=== PATIENT | female | born 1995 | race Caucasian/White ===

== ENCOUNTER 2016-11-20 18:52 | Inpatient (IN) | payer BC, MEDICAID ==
--- NOTE | 2016-11-20 20:05 | EDPHY ---
H & P Time Seen by Provider: 11/20/16 19:48 HPI/ROS: Chief complaint. Vomiting, possible aspiration HPI. 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 She was at school today and about 11:00 a.m. called mom to come because patient vomited. She has vomited 2 more times. Vomiting fluids and unable to take oral fluids. This evening mom noticed that her lung sounds somewhat rapidly. She does have a history of aspiration pneumonia. Mom also notes decreased urination. Patient has had pancreatitis in the past though recently had the lipase checked it was normal. ROS Constitutional. no fever/chills, no weakness Eyes. no problems with vision ENT. no sore throat, no nasal drainage Cardiovascular. no chest pain Respiratory. Rattling in chest Abdominal. Vomiting . no problems urinating MS. no calf pain/swelling, no neck/back pain, no joint pain Skin. no rash Lymph. no swollen glands Neuro. no headache, no dizziness, difficulty walking and nonverbal secondary to trisomy 18 Past Medical/Surgical History: Trisomy 18, scoliosis, G-tube fed, GI bleed, pancreatitis, pneumonia, UTIs, intussusception repair, appendectomy Social History: Lives at home with parents Smoking Status: Never smoked Physical Exam: General Appearance: Alert well-developed female nonverbal mild distress vital signs are stable Eyes: Pupils equal and round no pallor or injection. ENT, mucous membranes are dry Respiratory: Right-sided rhonchi Cardiovascular: Regular rate and rhythm. Gastrointestinal: Abdomen is soft and nontender, no masses, bowel sounds normal. Neurological: Awake and alert, sensory and motor exams grossly normal. Skin: Warm and dry, no rashes. Musculoskeletal: Neck is supple nontender. Extremities symmetrical, full range of motion. Psychiatric: Patient at baseline Constitutional: Initial Vital Signs Temperature (C) 36.2 C 11/20/16 19:10 Heart Rate 97 11/20/16 19:10 Respiratory Rate 20 11/20/16 19:10 Blood Pressure 107/67 11/20/16 19:10 O2 Sat (%) 92 11/20/16 19:10 O2 Delivery Mode Room Air Allergies/Adverse Reactions: No Known Allergies Allergy (Verified 05/15/15 09:41) Home Medications: Medication Instructions Recorded NK [No Known Home Meds] 05/15/15 Medical Decision Making - Diagnostics Imaging Results: Imaging Impressions Chest X-Ray 11/20/16 20:07 Impression: 1. Limited study, with no definite acute findings. 2. Slight increase in severe dextroscoliosis. Chest x-ray reviewed by me and discussed with Dr. Reaves is of difficult technical ability due to patient's severe scoliosis. There is no obvious pneumonia however. Procedures: IV normal saline. Zofran IV ED Course/Re-evaluation: Re-evaluation 9:15 p.m.. Patient's parents and I discussed imaging and lab results. No urine yet. Mother feels the patient is breathing slightly faster than normal. She will be given albuterol updraft. Re-evaluation 10:15 p.m. still has rhonchi on the right after breathing treatment. She is on supplemental O2 but her saturation dropped when taking her off O2. Mom tried to insert feeding tube and there was a small amount of blood which is unusual. Patient is nonverbal which makes it difficult to assess though the patient does appear to be more alert. Differential Diagnosis: I am concerned about aspiration pneumonia. This may have begun as a gastroenteritis with vomiting. She has a history of aspiration pneumonia and clinically she has aspiration with hypoxia and rhonchi on the right even though the chest x-ray shows no obvious pneumonia now - Data Points Laboratory Results: Laboratory Results 11/20/16 20:11 11/20/16 20:11 11/20/16 11/20/16 20:11 20:11 WBC 13.26 10^3/uL H 10^3/uL (3.80-9.50) RBC 4.22 10^6/uL 10^6/uL (4.18-5.33) Hgb 13.4 g/dL g/dL (12.6-16.3) Hct 38.8 % % (38.0-47.0) MCV 91.9 fL fL (81.5-99.8) MCH 31.8 pg pg (27.9-34.1) MCHC 34.5 g/dL g/dL (32.4-36.7) RDW 12.0 % % (11.5-15.2) Plt Count 194 10^3/uL 10^3/uL (150-400) MPV 10.1 fL fL (8.7-11.7) Neut % (Auto) 85.5 % H % (39.3-74.2) Lymph % (Auto) 10.0 % L % (15.0-45.0) Kay % (Auto) 4.1 % L % (4.5-13.0) Eos % (Auto) 0.0 % L % (0.6-7.6) Baso % (Auto) 0.2 % L % (0.3-1.7) Nucleat RBC Rel Count 0.0 % % (0.0-0.2) Absolute Neuts (auto) 11.32 10^3/uL H 10^3/uL (1.70-6.50) Absolute Lymphs (auto) 1.33 10^3/uL 10^3/uL (1.00-3.00) Absolute Monos (auto) 0.55 10^3/uL 10^3/uL (0.30-0.80) Absolute Eos (auto) 0.00 10^3/uL L 10^3/uL (0.03-0.40) Absolute Basos (auto) 0.03 10^3/uL 10^3/uL (0.02-0.10) Absolute Nucleated RBC 0.00 10^3/uL 10^3/uL (0-0.01) Immature Gran % 0.2 % % (0.0-1.1) Immature Gran # 0.03 10^3/uL 10^3/uL (0.00-0.10) Sodium 137 mEq/L mEq/L (134-144) Potassium 3.7 mEq/L mEq/L (3.5-5.2) Chloride 101 mEq/L mEq/L (97-110) Carbon Dioxide 24 mEq/l mEq/l (22-31) Anion Gap 12 mEq/L mEq/L (8-16) BUN 12 mg/dL mg/dL (7-23) Creatinine 0.5 mg/dL L mg/dL (0.6-1.0) Estimated GFR > 60 Glucose 86 mg/dL mg/dL (70-100) Calcium 10.2 mg/dL mg/dL (8.5-10.4) Lipase 32 IU/L IU/L (23-300) Medications Given: Discontinued Medications Albuterol (Proventil Neb) 3 ml IH EDNOW ONE Stop: 11/20/16 21:16 Last Admin: 11/20/16 21:57 Dose: 3 ml Sodium Chloride (Ns) 1,000 mls @ 0 mls/hr IV EDNOW ONE; Wide Open PRN Reason: Protocol Stop: 11/20/16 20:07 Last Admin: 11/20/16 20:18 Dose: 1,000 mls Sodium Chloride (Ns) 1,000 mls @ 0 mls/hr IV ONCE ONE; Wide Open PRN Reason: Protocol Stop: 11/20/16 20:08 Last Admin: 11/20/16 22:04 Dose: 1,000 mls Ondansetron HCl (Zofran) 4 mg IVP EDNOW ONE Stop: 11/20/16 20:07 Last Admin: 11/20/16 20:18 Dose: 4 mg Departure - Departure Disposition: [facility] Inpatient Acute Clinical Impression: Vomiting and dehydration Aspiration pneumonia Qualifiers: Aspiration pneumonia type: due to gastric secretions Laterality: right Lung location: unspecified part of lung Qualified Code(s): J69.0 - Pneumonitis due to inhalation of food and vomit Condition: Fair Referrals: UNKNOWN,[facility] [Other] - As per Instructions
[2016-11-20] MEDS ORDERED: ONDANSETRON 4 MG/2 ML VIAL IVP ONE (20:06)
[2016-11-20] MEDS ORDERED: NS 1,000 ML IV ONE ×2 (20:06→20:07)
[2016-11-20 20:25] LABS: % IMMATURE GRANULYOCYTES 0.2 % (0.0-1.1); ABSOLUTE IMMATURE GRANULOCYTES 0.03 10^3/uL (0.00-0.10); ADD DIFF? NO; ADD MORPH? NO; ADD SCAN? NO; ATYPICAL LYMPHOCYTE FLAG 0 (0-99); FRAGMENT RBC FLAG 0 (0-99); HEMATOCRIT 38.8 % (38.0-47.0); HEMOGLOBIN 13.4 g/dL (12.6-16.3); LEFT SHIFT FLG 10 (0-99); LIPEMIA HEMOLYSIS FLAG 90 (0-99); MEAN CELL HEMOGLOBIN 31.8 pg (27.9-34.1); MEAN CELL HEMOGLOBIN CONCENTR. 34.5 g/dL (32.4-36.7); MEAN CELL VOLUME 91.9 fL (81.5-99.8); MEAN PLATELET VOLUME 10.1 fL (8.7-11.7); PLATELET CLUMPS FLAG 30 (0-99); PLATELET COUNT 194 10^3/uL (150-400); RED BLOOD CELL COUNT 4.22 10^6/uL (4.18-5.33)
[2016-11-20 20:29] LABS: ANION GAP 12 mEq/L (8-16); CALCIUM 10.2 mg/dL (8.5-10.4); CARBON DIOXIDE 24 mEq/l (22-31); CHLORIDE 101 mEq/L (97-110); CREATININE 0.5 mg/dL (0.6-1.0); GLOMERULAR FILTRATION RATE > 60; GLUCOSE 86 mg/dL (70-100); POTASSIUM 3.7 mEq/L (3.5-5.2); SODIUM 137 mEq/L (134-144)
[2016-11-20] MEDS ORDERED: ALBUTEROL 3 ML DEYVIAL IH ONE (21:15)
[2016-11-20] MEDS ORDERED: AMPICILLIN/SULBACTAM 1.5 GM in NS 50 ML IV ONE (22:25)
[2016-11-20] MEDS ORDERED: ONDANSETRON 4 MG/2 ML VIAL IVP PRN (22:37)
[2016-11-20] MEDS ORDERED: ONDANSETRON DISINTEGRATING 4 MG TAB PO PRN (22:37)
[2016-11-20] MEDS ORDERED: NS 500 ML IV ONE (23:52)
--- NOTE | 2016-11-21 01:53 | PDGENHP ---
History and Physical - Chief Complaint Aspiration - History of Present Illness 21 yo F w/ hx of trisomy 18, non-verbal/non-communicative at baseline presents after episode of vomiting and likely aspiration. Parents report that patient first vomited while at her daycare around mid-day. She then vomited again around 5 PM at which time mom noticed signs of aspiration. Patient is unable to communicate and therefore cannot provide symptoms. While in the ED the patient exhibited new hypoxia and scant bloody output from G-tube. Upon arrival to the floor patient was stable but tachycardic with significant O2 requirement. History Information - Allergies/Home Medication List Allergies/Adverse Reactions: No Known Allergies Allergy (Verified 05/15/15 09:41) Home Medications: NK [No Known Home Meds] 05/15/15 [Last Taken Unknown] I have personally reviewed and updated: family history, medical history - Past Medical History Additional medical history: Trisomy 18. Pancreatitis x2. Intussusception - Family History Positive for: cancer - Social History Smoking Status: Never smoked Review of Systems Review of Systems: Unable to obtain, patient non-verbal Physical Exam Physical Exam: Temp Pulse Resp BP Pulse Ox 36.5 C 122 H 26 H 100/69 90 L 11/21/16 00:05 11/21/16 00:05 11/20/16 23:07 11/21/16 00:05 11/21/16 00:05 O2 (L/minute) 15 Constitutional: uncomfortable, other (Non-verbal, minimally responsive) Ears, Nose, Mouth, Throat: moist mucous membranes, no oral mucosal ulcers Cardiovascular: no murmur, rub, or gallop, tachycardia Respiratory: respiratory distress, rhonchi (Diffuse) Gastrointestinal: tenderness, other (G-tube in place) Skin: warm, normal color Neurologic: other (Unable to assess) Psychiatric: other (Not interactive) Lab Data & Imaging Review 11/20/16 20:11 11/20/16 20:11 WBC 13.26 10^3/uL (3.80-9.50) H 11/20/16 20:11 RBC 4.22 10^6/uL (4.18-5.33) 11/20/16 20:11 Hgb 13.4 g/dL (12.6-16.3) 11/20/16 20: Hct 38.8 % (38.0-47.0) 11/20/16 20:11 MCV 91.9 fL (81.5-99.8) 11/20/16 20:11 MCH 31.8 pg (27.9-34.1) 11/20/16 20:11 MCHC 34.5 g/dL (32.4-36.7) 11/20/16 20:11 RDW 12.0 % (11.5-15.2) 11/20/16 20:11 Plt Count 194 10^3/uL (150-400) 11/20/16 20:11 MPV 10.1 fL (8.7-11.7) 11/20/16 20:11 Neut % (Auto) 85.5 % (39.3-74.2) H 11/20/16 20:11 Lymph % (Auto) 10.0 % (15.0-45.0) L 11/20/16 20:11 [place] % (Auto) 4.1 % (4.5-13.0) L 11/20/16 20:11 Eos % (Auto) 0.0 % (0.6-7.6) L 11/20/16 20:11 Baso % (Auto) 0.2 % (0.3-1.7) L 11/20/16 20:11 Nucleat RBC Rel Count 0.0 % (0.0-0.2) 11/20/16 20:11 Absolute Neuts (auto) 11.32 10^3/uL (1.70-6.50) H 11/20/16 20:11 Absolute Lymphs (auto) 1.33 10^3/uL (1.00-3.00) 11/20/16 20:11 Absolute Monos (auto) 0.55 10^3/uL (0.30-0.80) 11/20/16 20:11 Absolute Eos (auto) 0.00 10^3/uL (0.03-0.40) L 11/20/16 20:11 Absolute Basos (auto) 0.03 10^3/uL (0.02-0.10) 11/20/16 20:11 Absolute Nucleated RBC 0.00 10^3/uL (0-0.01) 11/20/16 20: Immature Gran % 0.2 % (0.0-1.1) 11/20/16 20:11 Immature Gran # 0.03 10^3/uL (0.00-0.10) 11/20/16 20:11 VBG Lactic Acid 2.4 mmol/L (0.7-2.1) H 11/20/16 00:30 Sodium 137 mEq/L (134-144) 11/20/16 20:11 Potassium 3.7 mEq/L (3.5-5.2) 11/20/16 20:11 Chloride 101 mEq/L (97-110) 11/20/16 20:11 Carbon Dioxide 24 mEq/l (22-31) 11/20/16 20:11 Anion Gap 12 mEq/L (8-16) 11/20/16 20:11 BUN 12 mg/dL (7-23) 11/20/16 20:11 Creatinine 0.5 mg/dL (0.6-1.0) L 11/20/16 20:11 Estimated GFR > 60 11/20/16 20:11 Glucose 86 mg/dL (70-100) 11/20/16 20:11 Calcium 10.2 mg/dL (8.5-10.4) 11/20/16 20:11 Lipase 32 IU/L (23-300) 11/20/16 20:11 Imaging Review: CXR without clear acute findings but severe dextroscoliosis. Assessment & Plan Assessment: 21 yo F w/ trisomy 18 and severe developmental delay presents after aspiration event with respiratory distress. Plan: 1. AHRF - Requiring 12-15L via face mask currently; precipitated by aspiration event on day of admission in the setting of poor respiratory reserve 2/2 severe restrictive physiology from scoliosis. - Discussed GOC at length with parents; ok for NIPPV and intubation if necessary. They do not with to proceed to a tracheostomy down the line if that were to be recommended - Chest physiotherapy ordered - Low threshold to involve the Pulmonary service - Infection coverage as below 2. Aspiration pneumonitis/pneumonia - WBC 13, afebrile, lactate 2.4. Unclear if truly infected but will cover with antibiotics noting poor reserve. - Blood cultures ordered - Unasyn IV for aspiration 3. Vomiting - Unclear trigger, difficult to assess due to patient's inability to communicate. Scant blood noted from G-tube while in ED. Patient does have hx of intussusception as well as pancreatitis. Lipase WNL on admission. - Check abdominal XR, LFTs - Low threshold to involve surgical team 4. Hx of Trisomy 18 - Severe developmental delay, non-communicative and minimally interactive at baseline. Diet - Per G-tube Code - Full, ok for intubation Ppx - Low risk Dispo - Admit to inpatient status noting severity of respiratory failure.
[2016-11-21] MEDS: AMPICILLIN/SULBACTAM 1.5 GM in NS 50 ML IV SCH ×4 (05:11→23:58)
[2016-11-21 05:51] LABS: % IMMATURE GRANULYOCYTES 0.2 % (0.0-1.1); ABSOLUTE IMMATURE GRANULOCYTES 0.02 10^3/uL (0.00-0.10); ADD DIFF? NO; ADD MORPH? NO; ADD SCAN? YES; ATYPICAL LYMPHOCYTE FLAG 0 (0-99); FRAGMENT RBC FLAG 0 (0-99); HEMATOCRIT 34.3 % (38.0-47.0); HEMOGLOBIN 11.3 g/dL (12.6-16.3); LIPEMIA HEMOLYSIS FLAG 80 (0-99); MEAN CELL HEMOGLOBIN 31.1 pg (27.9-34.1); MEAN CELL HEMOGLOBIN CONCENTR. 32.9 g/dL (32.4-36.7); MEAN CELL VOLUME 94.5 fL (81.5-99.8); MEAN PLATELET VOLUME 10.6 fL (8.7-11.7); PLATELET CLUMPS FLAG 0 (0-99); PLATELET COUNT 154 10^3/uL (150-400); RED BLOOD CELL COUNT 3.63 10^6/uL (4.18-5.33); RED CELL DISTRIBUTION WIDTH 12.3 % (11.5-15.2)
[2016-11-21 06:04] LABS: LEFT SHIFT FLG 130 (0-99)
[2016-11-21 06:07] LABS: ALANINE AMINOTRANSFERASE 28 IU/L (9-52); ALBUMIN 3.2 g/dL (3.5-5.0); ALKALINE PHOSPHATASE 62 IU/L (38-126); ANION GAP 9 mEq/L (8-16); ASPARTATE AMINOTRANSFERASE 21 IU/L (14-46); BILIRUBIN,TOTAL 0.4 mg/dL (0.1-1.4); BILIRUBIN-CONJUGATED 0.2 mg/dL (0.0-0.5); BILIRUBIN-UNCONJUGATED 0.2 mg/dL (0.0-1.1); CALCIUM 8.8 mg/dL (8.5-10.4); CARBON DIOXIDE 22 mEq/l (22-31); CHLORIDE 110 mEq/L (97-110); CREATININE 0.5 mg/dL (0.6-1.0); GLOMERULAR FILTRATION RATE > 60; GLUCOSE 87 mg/dL (70-100); POTASSIUM 3.6 mEq/L (3.5-5.2); SODIUM 141 mEq/L (134-144); TOTAL PROTEIN 5.5 g/dL (6.3-8.2)
[2016-11-21 06:40] LABS: SCAN POSITIVE
[2016-11-21 06:43] LABS: PLATELET ESTIMATE ADEQUATE (ADEQ)
[2016-11-21] MEDS ORDERED: ALBUTEROL 3 ML DEYVIAL ONE (08:27)
[2016-11-21] MEDS ORDERED: NS 500 ML IV ONE (08:50)
[2016-11-21] MEDS ORDERED: NS W/ 20 KCl/L 1,000 ML IV SCH (09:00)
--- NOTE | 2016-11-21 09:58 | HOSPPROG ---
Hospitalist Progress Note Assessment/Plan: 60 minutes of critical care time spent with this patient, at bedside, mother present, addressing the following: - stat team called for resp distress w/ SpO 70-80s% on 15L face mask, patient visibly tachypneic, in distress/uncomfortable, and w/ coarse upper airway sounds - lungs w/ rhonchi bilat on inspiration, heart rhythm regular but tachy, patient unable to verbalize - given ICU full, decision made to move patient to ED where she can be stabilized with BiPAP therapy first (per mother request), then intubation available if necessary (spoke w/ Dr. Herzog from anaesthesia, they are available to intubate potentially difficult airway, call [phone] and request anaesthesia) - RT will start BiPAP and check ABG/lactic at 10 a.m. - other labs at 10 a.m. (CBC/CMP) - given that there is blood from PEG earlier, recommend opening it up to suctioning, gauging output, rechecking Hgb at 10 a.m. - RT to continue upper airway suctioning - cont Unasyn for asp PNA coverage - bolus 500cc now, then run cont IVF at 100cc/hr and bolus if hypotensive - d/w Dr. Dennis Downs for ICU, appreciate consultation, aspiration PNA most likely cause of above, and it is a result of her underlying Trisomy 18 process, although may have been exacerbated by UGIB given reported hx - at present family would like full resuscitation, but ongoing goals of care discussions will take place Objective: Vital Signs Temp Pulse Resp BP Pulse Ox 36.6 C 131 H 16 129/75 H 100 11/21/16 08:00 11/21/16 09:24 11/21/16 09:24 11/21/16 09:00 11/21/16 09:24 Laboratory Results 11/21/16 05:06 11/21/16 05:06 11/20/16 11/21/16 11/22/16 05:59 05:59 05:59 Intake Total 1500 Balance 1500 ICD10 Worksheet Patient Problems: Problems Problem Status Onset Aspiration pneumonia Acute
[2016-11-21] MEDS: TOBRAMYCIN 0.3% 5 ML OPHT.BTL EACHEYE SCH (12:21)
[2016-11-21] MEDS: ACETAMINOPHEN 325 MG TAB PO PRN ×2 (12:40→22:00)
[2016-11-21] MEDS ORDERED: ALTEPLASE 2 MG VIAL IVP PRN ×2 (13:46)
--- NOTE | 2016-11-21 14:15 | ASMTCMCOM ---
CM Note CM Note Notes: Patient admitted for likely aspiration PNA. She has a hx of Trisomy 18 and is non-verbal/non-communicative. I spoke with her mother Valeriano who provided backgrount on patient's living situation/activies. Patient lives at home with both parents and has a full-time live-in caregiver. She attends a program at [facility] 4x week. She sees an white mixing operator, hippotherapist, and other osteopathic practitioners. She is on the Medicaid EBD voucher program. Her mother requested that I call her [facility] auto striper Flora Sprague (?). I did so and left a message for Flora. I don't anticipate that patient will have any d/c needs because she is so well-supported at home, but if she does, CM will assist. Date Signed: 11/21/2016 02:14 PM Electronically Signed By:Ariana León RN
[2016-11-21] MEDS ORDERED: BENZOCAINE UNIT DOSE SPRAY HURRICAINE MM ONE (14:17)
[2016-11-21] MEDS ORDERED: LIDOCAINE 1% 300 MG/30 ML SDV MISC ONE (14:17)
[2016-11-21] MEDS ORDERED: LIDOCAINE 2% JELLY 5 ML TUBE TP ONE (14:17)
[2016-11-21] MEDS ORDERED: fentaNYL 100 MCG/2 ML INJ ONE (14:30)
[2016-11-21] MEDS ORDERED: MIDAZOLAM 2 MG/2 ML VIAL ONE (14:31)
--- NOTE | 2016-11-21 15:29 | PDMN ---
Medical Necessity Medical necessity: est los >2 mn for AHRF requiring 12-15 lpm O2, precipitated by vomiting/aspiration event, possible aspiration pneumonitis/pna, for IV abx, bipap/airway suctioning; hx trisomy 18, severe DD; per H&P & order 11/21/16
[2016-11-21] MEDS ORDERED: MIDAZOLAM 2 MG/2 ML VIAL IVP ONE (15:30)
[2016-11-21] MEDS ORDERED: fentaNYL 100 MCG/2 ML INJ IVP ONE (15:30)
--- NOTE | 2016-11-21 16:07 | GCON ---
[f rep st] CONSULTATION PULMONARY/CRITICAL CARE CONSULTATION. DATE OF CONSULTATION: 11/21/2016 REFERRING PHYSICIAN: Sonny Garcia REASON FOR REFERRAL: Evaluation and management of hypoxemia with aspiration pneumonia. HISTORY: The patient is a 21-year-old woman with a history of trisomy 18 who is nonverbal at [facility]. She was apparently doing fairly well until yesterday when she had an episode of vomiting. She church d a few more episodes as well as possible aspiration yesterday and was brought into the hospital. Sanya george developed hypoxemia and was admitted with increasing oxygen needs as well as tachycardia. She was transferred to the intensive care unit due to worsening hypoxemia. There has been no cough. She has been placed on BiPAP and her oxygen saturations are stable in the high 90s. PAST MEDICAL HISTORY: Trisomy 18. She has had pancreatitis x2. She has a feeding tube and does not take anything orally. MEDICATIONS AT ADMISSION: Include tobramycin eye drops. Here in the hospital she is on Unasyn, ondansetron and albuterol. FAMILY HISTORY: Positive for cancer. SOCIAL HISTORY: No smoking or alcohol. REVIEW OF SYSTEMS: Unobtainable. PHYSICAL EXAMINATION: GENERAL: The patient has chronic contractures and is minimally responsive on BiPAP. She does moan with movement. VITAL SIGNS: Blood pressure is 102/44 with a heart rate of 104 . She is afebrile. Her temperature is 38.8. Her oxygen saturations are 98% on 90% oxygen. HEENT: Normocephalic and atraumatic. No icterus. NECK: No JVD. Trachea is midline. CHEST: She has dec reased breath sounds bilaterally with occasional rhonchi in the right. CARDIAC: Regular tachycardia without murmur. ABDOMEN: Soft. There is no apparent tenderness. She has a feeding tube site. EXT REMITIES: She has hypoplasia with some contractures. NEUROLOGIC: The patient responds with some mo aning with movement. Motor exam is impaired by her contractures. LABORATORY: White blood count is 9.5 down from 13.3. She has 22% bands. Hemoglobin is 11.3. Chemi stry group is unremarkable. Creatinine is 0.5. A lactate is 2.4. A chest x-ray done last evening s howed severe stable scoliosis and no new pulmonary findings. Chest x-ray done early this morning shows new complete opacification of the left chest with elevation of the diaphragm, consistent with airway obstruction. Images reviewed. ASSESSMENT: Probable aspiration pneumonia. The patient has worsening hypoxemia and complete atelect asis of the left lung. I had a discussion with the patient's parents regarding options and the appro priate level of care. Currently she is doing fairly well on BiPAP, but could progress to intubation. Currently the patient is full code, but they are considering limiting supportive measures depending on how she does. They are particularly concerned about her needing a chronic trach, which they are not in favor of. I also discussed the potential benefits as well as risks of a bronchoscopy versus c ontinuing supportive care with BiPAP, antibiotics and bronchodilators. RECOMMENDATIONS: 1. Place PICC line. 2. Proceed with bronchoscopy. It is possible the patient will require intubation for this and the joellen jaime's parents understand that. /[id number]/MODL
--- NOTE | 2016-11-21 16:48 | GPN ---
[f rep st] PROCEDURE NOTE DATE OF PROCEDURE: 11/21/2016 PROCEDURE: Flexible fiberoptic bronchoscopy. INDICATIONS FOR PROCEDURE: Aspiration pneumonia with probable mucus plugging. PROCEDURE NOTE: The risks and benefits of the procedure were explained to the patient's parents, who agreed to proceed. The entire procedure was performed in the patient's intensive care unit room und er blood pressure, EKG and oximetry monitoring. It was my assessment that there was no risk of airbo rne infection from the procedure. Following an appropriate time-out, a bite block was placed between the patient's teeth, and topical anesthetic was applied to her oropharynx. The bronchoscope was adv anced through the bite block and to the vocal cords, which moved normally. Then 1% lidocaine was use d topically on the airways for anesthesia. I advanced the bronchoscope through the vocal cords into the trachea, which was essentially clear of secretions. In the proximal mainstem bronchi, there was a small to moderate amount of scattered thin mucopurulent secretions, which were easily suctioned and were not occluding any airways. All areas were examined bilaterally with essentially equivalent joe unt of these thin purulent secretions, which were easily suctioned and nonocclusive. All areas were suctioned clear, and then I lavaged both lower lobes with a small volume of saline. There was no ble eding and no complications apparent during the procedure with the exception of transient fall in satu rations down to the mid-80s, which improved promptly at the end of the procedure. The patient receiv ed 25 mcg of fentanyl and 0.5 mg of Versed intravenously for analgesia and sedation. The specimen wa s sent for Gram stain and culture. /[id number]/MODL
[2016-11-21 16:52] LABS: % IMMATURE GRANULYOCYTES 0.2 % (0.0-1.1); ABSOLUTE IMMATURE GRANULOCYTES 0.01 10^3/uL (0.00-0.10); ADD DIFF? NO; ADD MORPH? NO; ADD SCAN? YES; ATYPICAL LYMPHOCYTE FLAG 0 (0-99); FRAGMENT RBC FLAG 0 (0-99); HEMATOCRIT 34.5 % (38.0-47.0); HEMOGLOBIN 11.5 g/dL (12.6-16.3); LIPEMIA HEMOLYSIS FLAG 80 (0-99); MEAN CELL HEMOGLOBIN 31.9 pg (27.9-34.1); MEAN CELL HEMOGLOBIN CONCENTR. 33.3 g/dL (32.4-36.7); MEAN CELL VOLUME 95.6 fL (81.5-99.8); MEAN PLATELET VOLUME 10.1 fL (8.7-11.7); PLATELET CLUMPS FLAG 10 (0-99); PLATELET COUNT 128 10^3/uL (150-400); RED BLOOD CELL COUNT 3.61 10^6/uL (4.18-5.33); RED CELL DISTRIBUTION WIDTH 12.4 % (11.5-15.2)
[2016-11-21 16:54] LABS: LEFT SHIFT FLG 300 (0-99)
[2016-11-21 17:59] LABS: SCAN POSITIVE
[2016-11-21 18:05] LABS: PLATELET ESTIMATE ADEQUATE (ADEQ)
[2016-11-22 04:27] LABS: ADD MORPH? NO; ADD SCAN? YES; ATYPICAL LYMPHOCYTE FLAG 0 (0-99); FRAGMENT RBC FLAG 0 (0-99); HEMATOCRIT 31.7 % (38.0-47.0); HEMOGLOBIN 10.2 g/dL (12.6-16.3); LIPEMIA HEMOLYSIS FLAG 80 (0-99); MEAN CELL HEMOGLOBIN 31.7 pg (27.9-34.1); MEAN CELL HEMOGLOBIN CONCENTR. 32.2 g/dL (32.4-36.7); MEAN CELL VOLUME 98.4 fL (81.5-99.8); MEAN PLATELET VOLUME 10.4 fL (8.7-11.7); PLATELET CLUMPS FLAG 0 (0-99); PLATELET COUNT 110 10^3/uL (150-400); RED BLOOD CELL COUNT 3.22 10^6/uL (4.18-5.33); RED CELL DISTRIBUTION WIDTH 12.8 % (11.5-15.2)
[2016-11-22 04:33] LABS: LEFT SHIFT FLG 300 (0-99)
[2016-11-22 05:08] LABS: ALANINE AMINOTRANSFERASE 25 IU/L (9-52); ALBUMIN 2.9 g/dL (3.5-5.0); ALKALINE PHOSPHATASE 56 IU/L (38-126); ANION GAP 15 mEq/L (8-16); ASPARTATE AMINOTRANSFERASE 29 IU/L (14-46); BILIRUBIN,TOTAL 0.4 mg/dL (0.1-1.4); CALCIUM 9.3 mg/dL (8.5-10.4); CARBON DIOXIDE 17 mEq/l (22-31); CHLORIDE 116 mEq/L (97-110); CREATININE 0.5 mg/dL (0.6-1.0); GLOMERULAR FILTRATION RATE > 60; GLUCOSE 73 mg/dL (70-100); POTASSIUM 4.1 mEq/L (3.5-5.2); SODIUM 148 mEq/L (134-144); TOTAL PROTEIN 5.2 g/dL (6.3-8.2)
[2016-11-22 05:17] LABS: BASE EXCESS -11.2 mEq/L (-2.5-2.5); BICARBONATE 15 mEq/L (22-26); MEASURED OXYGEN SATURATION 96 % (92-95); PCO2 36 mmHg (34-38); PO2 92 mmHg (65-75); TCO2 16 mEq/L (23-27)
[2016-11-22 05:18] LABS: BIPAP YES
[2016-11-22 05:19] LABS: O2 CONCENTRATIION 60 % (0-100); P/F RATIO 153 RATIO
[2016-11-22 05:39] LABS: ADD DIFF? YES; SCAN POSITIVE
[2016-11-22 06:05] LABS: PLATELET ESTIMATE DECREASED (ADEQ)
[2016-11-22 06:06] LABS: TOXIC GRANULATION PRESENT; TOXIC VACUOLIZATION PRESENT
[2016-11-22] MEDS: AMPICILLIN/SULBACTAM 1.5 GM in NS 50 ML IV SCH ×3 (06:29→18:54)
[2016-11-22] MEDS: D5W 1/2 NS W/ 20 KCl/L 1,000 ML IV SCH ×2 (07:48→18:54)
[2016-11-22] MEDS: ACETAMINOPHEN 325 MG TAB PO PRN (08:05)
--- NOTE | 2016-11-22 10:06 | HOSPPROG ---
Hospitalist Progress Note Assessment/Plan: Acute respiratory failure secondary to aspiration PNA - CXR shows RML PNA, on bipap, cont Unasyn, bronch'd yesterday-no obstruction. Discussed with pulm. High risk. Trisomy 18 - non-verbal at baseline, though quite active per family Metabolic acidosis - AG 15, appears to be a metabolic acidosis rather than respiratory, pCO2 normal on bipap. Query starvation ketosis with no intake past couple of days. Continue IVFs, monitor. Constipation - resume bowel protocol FEN - resume tube feeds at reduced rate and up-titrate as tolerated Full code PPLX - Lovenox Dispo - cont inpt. Palliative care consult today to further discuss goals of care. Mother reports they would want to wait and make decision about intubation at the time of an emergency if one occurred, though that is not the best time to make care goal decisions. Hoping palliative care team can help better elucidate their wishes. Subjective: PT sleeping, on bipap. A bit tachypneic. No fevers. Constipated. Needs home bowel regimen. Objective: Vital Signs Temp Pulse Resp BP Pulse Ox 38.2 C 105 H 21 H 94/40 L 99 11/22/16 07:50 11/22/16 08:43 11/22/16 08:43 11/22/16 08:00 11/22/16 08:43 Microbiology 11/21/16 16:00 Gram Stain - Final Lung Bilateral - Bronchial Washings Laboratory Results 11/22/16 04:10 11/22/16 04:10 11/21/16 11/22/16 11/23/16 05:59 05:59 05:59 Intake Total 2380 Balance 2380 - Physical Exam Constitutional: chronically ill appearing Eyes: PERRL Ears, Nose, Mouth, Throat: moist mucous membranes Cardiovascular: tachycardia Respiratory: no respiratory distress, reduced air movement, other (on bipap) Skin: warm ICD10 Worksheet Patient Problems: Problems Problem Status Onset Aspiration pneumonia Acute
[2016-11-22] MEDS ORDERED: ACETAMINOPHEN 160 MG/5 ML UDCUP TUBE PRN (10:50)
[2016-11-22] MEDS ORDERED: MAGNESIUM HYDROXIDE 30 ML UDCUP PO PRN (10:51)
[2016-11-22] MEDS ORDERED: LACTULOSE 20 GM/30 ML UDCUP PO PRN (10:51)
[2016-11-22] MEDS ORDERED: POLYETHYLENE GLYCOL 3350 17 GM PKT PO PRN (10:51)
[2016-11-22] MEDS ORDERED: BISACODYL 10 MG SUPP PR PRN (11:10)
[2016-11-22] MEDS ORDERED: POLYETHYLENE GLYCOL 3350 17 GM PKT TUBE PRN (11:30)
[2016-11-22] MEDS ORDERED: MAGNESIUM HYDROXIDE 30 ML UDCUP TUBE PRN (11:30)
[2016-11-22] MEDS ORDERED: LACTULOSE 20 GM/30 ML UDCUP TUBE PRN (11:30)
[2016-11-22] MEDS: FAMOTIDINE 20 MG/NACL 50 ML IV SCH ×2 (12:25→22:19)
[2016-11-22] MEDS: ENOXAPARIN 30 MG/0.3 ML SYR SC SCH (12:25)
[2016-11-22] MEDS: SENNOSIDES 17.6 MG/10 ML UDL TUBE SCH ×2 (12:35→22:19)
[2016-11-22] MEDS: TOBRAMYCIN 0.3% 5 ML OPHT.BTL EACHEYE SCH (12:35)
--- NOTE | 2016-11-22 13:05 | PDINTPN ---
Telecommunications Operator Progress Note Assessment/Plan: Assessment: Aspiration Pneumonia: Gas exchange stable, but desats off BiPAP. On Unasyn. Afebrile x 24 hours. WBC, bandemia increased. Tachycardia: Sinus Hypernatremia: Metabolic acidosis: Anion gap 15, which is a bit widened but not enough to explain degree of metabolic acidosis, likely has a component of NAG acidosis, ? from vomiting. Lactate normal, b-hydroxybutyrate pending. Nutrition: None for 36+ hours. Plan: Continue BiPAP, Unasyn, rotation. Follow Na on 1/2 NS. Follow CXR, consider bronch if atelectasis is persistent. Repeat VBG to follow acid-base. Start TF at 1/2 rate, increase as tolerated. 11/22/16 13:19 Subjective: Unresponsive Objective: Vital Signs Temp Pulse Resp BP Pulse Ox 38.2 C 103 H 21 H 105/59 L 97 11/22/16 07:50 11/22/16 12:00 11/22/16 12:00 11/22/16 12:00 11/22/16 12:00 Microbiology 11/21/16 16:00 Gram Stain - Final Lung Bilateral - Bronchial Washings Laboratory Results 11/22/16 04:10 11/22/16 04:10 11/21/16 11/22/16 11/23/16 05:59 05:59 05:59 Intake Total 2380 Balance 2380 CXR: Resolved L lung atelectasis. New RML atelectasis. Images reviewed. Bronch Wash: NOS. Physical Exam - Physical Exam General Appearance: no apparent distress, No alert EENT: normal ENT inspection Neck: normal inspection Respiratory: decreased breath sounds Cardiac/Chest: regular rate, rhythm, tachycardia, No edema Abdomen: normal bowel sounds, non-tender, soft Skin: normal color, warm/dry Extremities: normal inspection Neuro/Psych: No alert ICD10 Worksheet Patient Problems: Problems Problem Status Onset Aspiration pneumonia Acute
[2016-11-22] MEDS: BISACODYL 10 MG SUPP PR PRN (13:40)
[2016-11-22 14:33] LABS: PCO2 VENOUS 46 mmHg (40-44); PH VENOUS BLOOD 7.28 (7.31-7.42); PO2 VENOUS 31 mmHg (35-40); TCO2 VENOUS 22 mEq/L (23-27); VEN MEASURED OXYGEN SATURATION 61 % (65-75)
--- NOTE | 2016-11-22 15:22 | PDPCPN ---
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 Developed severe respiratory distress requiring bipap and admission to the ICU. At baseline Rashawn is non verbal and dependent on ADLs. Lives at home with her parents as well as a caregiver. Here in the hospital being treated for aspiration PNA likely from when she vomited. Palliative care consulted for complex medical decision making. Met with mom and dad at the bedside in the morning. They shared Rashawn's life including no hospitalizations or other major health problems in the past 10 years. They have goals which include focusing on her quality of life. 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 They are hopeful Rashawn can quickly get back to the things she likes to do. They feel Rashawn is not herself here in the hospital as she has been lying in bed and not up in her wheelchair which is normal for her. They feel it is normal as she is in bed, to sleep. We discussed goals which would include temporary intubation if needed to get through an acute event. They have fears of needing permanent ventilation or trach as that would prevent Rashawn from doing the things she enjoys. They have a lot of help at home with their medical delivery technician and do not feel they need any additional support at this time. Gave them the MOST form to review for ACP. Assessment: Physical: - Pain: appears without pain - tylenol PRN - Dyspnea: not comfortable on bipap - oxygen as needed - management per RT and pul - constipation - dulcolax supp daily PRN Emotional/psychological: Advanced Care Planning: Is patient decisional?: No Code Status: Full- would not want permanent intubation POA: Assume parents are legal guardians. Plan: Her parents are hopeful for recovery. She has a very good quality of life at baseline and they hope to continue this. There are worries if she did need increased care (trach) it would detract from her quality of life and limit her ability to do the things she enjoys. Subjective: non verbal Objective: Social History: Lives at home with her parents. Has a older sister and brother who live independently. She enjoys horseback riding as well as river rafting. She has a 02/09 caregiver Bozena who is currently in [facility] on vacation. she also has a service [place] dog. Medication list reviewed ROS: unable to obtain Functional assessment: PPS: 30% Functional status: dependent on ADLs, IADLs Vital Signs Temp Pulse Resp BP Pulse Ox 38.2 C 103 H 21 H 105/59 L 97 11/22/16 07:50 11/22/16 12:00 11/22/16 12:00 11/22/16 12:00 11/22/16 12:00 Microbiology 11/21/16 16:00 Gram Stain - Final Lung Bilateral - Bronchial Washings Laboratory Results 11/22/16 04:10 11/22/16 04:10 11/21/16 11/22/16 11/23/16 05:59 05:59 05:59 Intake Total 2380 Balance 2380 Physical Exam - Physical Exam General Appearance: mild distress, other (non verbal at baseline, appears uncomfortable on bipap) Respiratory: No respiratory distress, No accessory muscle use Extremities: No pedal edema Neuro/Psych: cognition abnormalities, other (non verbal at baseline) ICD10 Worksheet Patient Problems: Problems Problem Status Onset Aspiration pneumonia Acute
--- NOTE | 2016-11-22 16:10 | ASMTCMCOM ---
CM Note CM Note Notes: Left msg for [facility] at [facility] [phone]. Pt is on Bi-Pap and s/p brochoscopy yesterday. Date Signed: 11/22/2016 04:09 PM Electronically Signed By:MADDIE Harrington
[2016-11-22] MEDS ORDERED: SENNOSIDES/DOCUSATE SODIUM TAB PO SCH (21:00)
[2016-11-23] MEDS: AMPICILLIN/SULBACTAM 1.5 GM in NS 50 ML IV SCH ×4 (00:48→18:09)
[2016-11-23 04:59] LABS: PCO2 VENOUS 48 mmHg (40-44); PH VENOUS BLOOD 7.35 (7.31-7.42); PO2 VENOUS 26 mmHg (35-40); TCO2 VENOUS 27 mEq/L (23-27); VEN MEASURED OXYGEN SATURATION 50 % (65-75)
[2016-11-23 05:00] LABS: BIPAP YES; I:E RATIO 18 RATIO; O2 CONCENTRATIION 40 % (0-100)
[2016-11-23 05:19] LABS: % IMMATURE GRANULYOCYTES 0.7 % (0.0-1.1); ABSOLUTE IMMATURE GRANULOCYTES 0.06 10^3/uL (0.00-0.10); ADD DIFF? NO; ADD MORPH? NO; ADD SCAN? NO; ATYPICAL LYMPHOCYTE FLAG 0 (0-99); FRAGMENT RBC FLAG 0 (0-99); HEMATOCRIT 28.8 % (38.0-47.0); HEMOGLOBIN 9.8 g/dL (12.6-16.3); LEFT SHIFT FLG 80 (0-99); LIPEMIA HEMOLYSIS FLAG 90 (0-99); MEAN CELL HEMOGLOBIN 32.1 pg (27.9-34.1); MEAN CELL VOLUME 94.4 fL (81.5-99.8); MEAN PLATELET VOLUME 10.3 fL (8.7-11.7); PLATELET CLUMPS FLAG 0 (0-99); PLATELET COUNT 111 10^3/uL (150-400); RED BLOOD CELL COUNT 3.05 10^6/uL (4.18-5.33); RED CELL DISTRIBUTION WIDTH 12.7 % (11.5-15.2)
[2016-11-23 05:22] LABS: ANION GAP 6 mEq/L (8-16); CALCIUM 8.1 mg/dL (8.5-10.4); CARBON DIOXIDE 27 mEq/l (22-31); CHLORIDE 109 mEq/L (97-110); CREATININE 0.3 mg/dL (0.6-1.0); GLOMERULAR FILTRATION RATE > 60; GLUCOSE 128 mg/dL (70-100); POTASSIUM 3.6 mEq/L (3.5-5.2); SODIUM 142 mEq/L (134-144)
[2016-11-23] MEDS: D5W 1/2 NS W/ 20 KCl/L 1,000 ML IV SCH ×2 (05:22→16:21)
[2016-11-23] MEDS: ENOXAPARIN 30 MG/0.3 ML SYR SC SCH (08:20)
[2016-11-23] MEDS ORDERED: [UNRECOGNIZED DRUG - OTHER] PO SCH (09:00)
[2016-11-23] MEDS ORDERED: [UNRECOGNIZED DRUG - OTHER] PO SCH (09:00)
[2016-11-23] MEDS: SENNOSIDES 17.6 MG/10 ML UDL TUBE SCH (09:05)
[2016-11-23] MEDS: FAMOTIDINE 20 MG/NACL 50 ML IV SCH (09:15)
[2016-11-23] MEDS: TOBRAMYCIN 0.3% 5 ML OPHT.BTL EACHEYE SCH (09:15)
--- NOTE | 2016-11-23 11:01 | PDINTPN ---
Traveling Phlebotomist Progress Note Assessment/Plan: Assessment: Aspiration Pneumonia: Was doing betteron BiPAP 40% O2, but desaturated off BiPAP. This morning she acutely decompensated after 6cc of TF. Now on BiPAP 100 % with marginal saturations, unable to tolerate being off BiPAP for more than a few seconds. Suctioning revealed secretions suggestive of TFs. She's had 2-4 cc of TF last night without problems. On Unasyn. Afebrile x 24 hours. WBC down today. I had a talk with parents, discussed acute management of decompensation as well as long-term prognosis. If she can survive current decompensation, I suspect her prognosis is fairly good so long as she doesn't aspirate. Hopefully just has temporary gastroenteritis, now with paresis related to acute illness, which will resolve with time. Tachycardia: Sinus, low 100s Hypernatremia: Improved Metabolic acidosis: Improved. Likely due in part to starvation, with elevated b- hydroxybutyrate. Nutrition: Minimal over last 3 days. Aspirated with attempts to feed. Plan: Bronch now. Continue BiPAP. Intubate (for a few days) if decompensates. Hold TF for at least a few days. Consider starting TPN in the meantime. If she recovers in a reasonable amount of time from her current decompensation, cautiously restart TF. Follow Na 35 minutes CC time addressing acute respiratory decompensation from aspiration ( exclusive of bronchoscopy). 11/23/16 11:53 Subjective: On BiPAP, opens eyes weakly, not responding to commands. Objective: Vital Signs Temp Pulse Resp BP Pulse Ox 36.3 C 102 H 25 H 102/54 L 95 11/23/16 08:50 11/23/16 10:00 11/23/16 10:00 11/23/16 10:00 11/23/16 10:00 Microbiology 11/21/16 16:00 Gram Stain - Final Lung Bilateral - Bronchial Washings Laboratory Results 11/23/16 04:45 11/23/16 04:45 11/22/16 11/23/16 11/24/16 05:59 05:59 05:59 Intake Total 2380 1364 180 Output Total 1 Balance 2380 1363 180 CXR: Resolved RML infiltrate, return of left lung opacification. Images reviewed. Laboratory Tests 11/23/16 11/23/16 04:45 11:15 VBG pH 7.35 7.39 VBG HCO3 26 24 VBG Total CO2 25 VBG O2 Saturation 50 L 92 H Mixed VBG pCO2 48 H 39 L Mixed VBG pO2 26 L 59 H O2 Concentration % 40 Inspir/Expir Ratio 18 Laboratory Tests 11/22/16 12:31 Beta-Hydroxybutyrate 2.40 H Physical Exam - Physical Exam General Appearance: mild distress, No alert EENT: normal ENT inspection Neck: normal inspection Respiratory: decreased breath sounds, No lungs clear Cardiac/Chest: tachycardia (regular), No edema Abdomen: normal bowel sounds, non-tender, soft Skin: normal color, warm/dry Extremities: normal inspection Neuro/Psych: No alert (somnolent) ICD10 Worksheet Patient Problems: Problems Problem Status Onset Aspiration pneumonia Acute
--- NOTE | 2016-11-23 11:15 | HOSPPROG ---
Hospitalist Progress Note Assessment/Plan: Acute respiratory failure secondary to aspiration PNA - Seems to be continuing to aspirate with tube feed trial yesterday, CXR improved on the right, worse on the left. Decompensated this am and per RT, suctioned out tube feeds. Discussed with pulm and family at bedside. -cont unasyn -repeat ABG now, pCO2 48 this am before desat episode -bronch today per pulm - mod secretions removed from both lungs with e/o tube feeds in trachea -cont bipap support for now -family open to intubation for limited time if pt decompensates Trisomy 18 - non-verbal at baseline, though quite active per family Metabolic acidosis - resolved with IVF's Constipation - resume bowel protocol FEN - hold tube feeds due to aspiration concern, NPO for now. -consider starting tpn Full code PPLX - Lovenox Dispo - cont inpt. Remains full code, intubation ok if needed for limited time. High risk. Subjective: Pt sedated, remains on bipap with tachypnea. No fevers. Attempt at reduced bolus of tube feeds yesterday and pt decompensated with RN suctioning what looked like tube feeds from her airway. Objective: Vital Signs Temp Pulse Resp BP Pulse Ox 36.3 C 102 H 25 H 102/54 L 95 11/23/16 08:50 11/23/16 10:00 11/23/16 10:00 11/23/16 10:00 11/23/16 10:00 Microbiology 11/21/16 16:00 Gram Stain - Final Lung Bilateral - Bronchial Washings Laboratory Results 11/23/16 04:45 11/23/16 04:45 11/22/16 11/23/16 11/24/16 05:59 05:59 05:59 Intake Total 2380 1364 180 Output Total 1 Balance 2380 1363 180 - Physical Exam Constitutional: chronically ill appearing Eyes: PERRL Ears, Nose, Mouth, Throat: other (+facial edema with continuous bipap) Cardiovascular: regular rate and rhythym Respiratory: inspiratory crackles, other (tachypneic) Gastrointestinal: normoactive bowel sounds, soft, non-tender abdomen Skin: warm Neurologic: other (somnolent) ICD10 Worksheet Patient Problems: Problems Problem Status Onset Aspiration pneumonia Acute
[2016-11-23 11:30] LABS: PCO2 VENOUS 39 mmHg (40-44); PH VENOUS BLOOD 7.39 (7.31-7.42); PO2 VENOUS 59 mmHg (35-40); TCO2 VENOUS 25 mEq/L (23-27); VEN MEASURED OXYGEN SATURATION 92 % (65-75)
[2016-11-23] MEDS ORDERED: LIDOCAINE 2% JELLY 5 ML TUBE TP ONE (11:36)
[2016-11-23] MEDS ORDERED: LIDOCAINE 1% 300 MG/30 ML SDV MISC ONE (11:36)
[2016-11-23] MEDS ORDERED: fentaNYL 100 MCG/2 ML INJ ONE (11:49)
[2016-11-23] MEDS ORDERED: D10W 1,000 ML IV PRN (11:50)
[2016-11-23] MEDS ORDERED: MIDAZOLAM 2 MG/2 ML VIAL ONE (11:50)
[2016-11-23] MEDS ORDERED: MIDAZOLAM 2 MG/2 ML VIAL IVP ONE (12:45)
[2016-11-23] MEDS ORDERED: fentaNYL 100 MCG/2 ML INJ IVP ONE (12:45)
[2016-11-23 12:47] LABS: % IMMATURE GRANULYOCYTES 0.4 % (0.0-1.1); ABSOLUTE IMMATURE GRANULOCYTES 0.04 10^3/uL (0.00-0.10); ADD DIFF? NO; ADD MORPH? NO; ADD SCAN? NO; ATYPICAL LYMPHOCYTE FLAG 0 (0-99); FRAGMENT RBC FLAG 0 (0-99); HEMATOCRIT 30.5 % (38.0-47.0); HEMOGLOBIN 10.4 g/dL (12.6-16.3); LEFT SHIFT FLG 70 (0-99); LIPEMIA HEMOLYSIS FLAG 90 (0-99); MEAN CELL HEMOGLOBIN 32.2 pg (27.9-34.1); MEAN CELL HEMOGLOBIN CONCENTR. 34.1 g/dL (32.4-36.7); MEAN CELL VOLUME 94.4 fL (81.5-99.8); MEAN PLATELET VOLUME 10.2 fL (8.7-11.7); PLATELET CLUMPS FLAG 0 (0-99); PLATELET COUNT 130 10^3/uL (150-400); RED BLOOD CELL COUNT 3.23 10^6/uL (4.18-5.33); RED CELL DISTRIBUTION WIDTH 12.6 % (11.5-15.2)
[2016-11-23 12:57] LABS: INR 1.29 (0.83-1.16); PROTIME(PATIENT) 16.1 SEC (12.0-15.0)
[2016-11-23 12:58] LABS: APTT 40.5 SEC (23.0-38.0)
[2016-11-23 13:06] LABS: ALANINE AMINOTRANSFERASE 28 IU/L (9-52); ALBUMIN 2.6 g/dL (3.5-5.0); ALKALINE PHOSPHATASE 57 IU/L (38-126); ANION GAP 4 mEq/L (8-16); ASPARTATE AMINOTRANSFERASE 29 IU/L (14-46); BILIRUBIN,TOTAL 0.4 mg/dL (0.1-1.4); CALCIUM 8.2 mg/dL (8.5-10.4); CARBON DIOXIDE 28 mEq/l (22-31); CHLORIDE 108 mEq/L (97-110); CREATININE 0.3 mg/dL (0.6-1.0); GLOMERULAR FILTRATION RATE > 60; GLUCOSE 131 mg/dL (70-100); MAGNESIUM 1.6 mg/dL (1.6-2.3); POTASSIUM 3.8 mEq/L (3.5-5.2); SODIUM 140 mEq/L (134-144); TOTAL PROTEIN 4.7 g/dL (6.3-8.2); TRIGLYCERIDE 62 mg/dL (35-135)
--- NOTE | 2016-11-23 14:36 | GPN ---
[f rep st] PROCEDURE NOTE DATE OF PROCEDURE: 11/23/2016 PROCEDURE: Flexible fiberoptic bronchoscopy. INDICATIONS: Respiratory failure with aspiration and probable retained secretions. PROCEDURE NOTE: The risks and benefits of the procedure were explained to the patient's parents, who agreed to proceed. The entire procedure was performed in the intensive care unit with the patient u nder blood pressure, EKG, and oximetry monitoring. It is my assessment that there was no risk of air borne infection from the procedure. After an appropriate time-out, a bite block was placed between t he patient's teeth, and the bronchoscope was advanced through the bite block into the posterior phary nx. There were scattered bloody secretions which were removed with Yankauer suctioning. I was then able to identify the vocal cords and trachea. I advanced the bronchoscope into the trachea, where I encountered some mucopurulent secretions, possibly with some tube feeds, as well, and these were in h er distal trachea. These were suctioned and were more copious in the left mainstem bronchus than on the right. I suctioned extensively, removing a moderate amount of secretions from both lungs. A sma ll volume saline lavage was performed on the left. All airways were clear of secretions at the end o f the procedure. There were no endobronchial abnormalities. The patient's oxygen saturations fell t o a minimum of 65%, improving briskly with the addition of additional supplemental oxygen and clearin g of secretions. The patient tolerated the procedure well otherwise. She received 1 mg of Versed an d 25 mcg of fentanyl intravenously for analgesia and sedation. No specimens were sent. /[id number]/MODL
[2016-11-23 15:59] LABS: PCO2 VENOUS 31 mmHg (40-44); PO2 VENOUS 44 mmHg (35-40); TCO2 VENOUS 25 mEq/L (23-27)
[2016-11-23] MEDS ORDERED: K PHOS 20 MMOL in D5W 250 ML IV ONE (16:00)
[2016-11-23] MEDS: BISACODYL 10 MG SUPP PR PRN (17:34)
[2016-11-23] MEDS: TPN W/ FAMOTIDINE 1 EA BAG IV SCH (23:05)
[2016-11-24] MEDS: AMPICILLIN/SULBACTAM 1.5 GM in NS 50 ML IV SCH ×5 (00:42→23:44)
[2016-11-24 06:23] LABS: % IMMATURE GRANULYOCYTES 0.3 % (0.0-1.1); ABSOLUTE IMMATURE GRANULOCYTES 0.03 10^3/uL (0.00-0.10); ADD DIFF? NO; ADD MORPH? NO; ADD SCAN? NO; ATYPICAL LYMPHOCYTE FLAG 10 (0-99); FRAGMENT RBC FLAG 0 (0-99); HEMATOCRIT 31.6 % (38.0-47.0); HEMOGLOBIN 10.8 g/dL (12.6-16.3); LEFT SHIFT FLG 20 (0-99); LIPEMIA HEMOLYSIS FLAG 90 (0-99); MEAN CELL HEMOGLOBIN 31.8 pg (27.9-34.1); MEAN CELL HEMOGLOBIN CONCENTR. 34.2 g/dL (32.4-36.7); MEAN CELL VOLUME 92.9 fL (81.5-99.8); MEAN PLATELET VOLUME 9.9 fL (8.7-11.7); PLATELET CLUMPS FLAG 10 (0-99); PLATELET COUNT 148 10^3/uL (150-400); RED CELL DISTRIBUTION WIDTH 12.6 % (11.5-15.2)
[2016-11-24 06:43] LABS: ALANINE AMINOTRANSFERASE 30 IU/L (9-52); ALBUMIN 2.9 g/dL (3.5-5.0); ALKALINE PHOSPHATASE 51 IU/L (38-126); ANION GAP 6 mEq/L (8-16); ASPARTATE AMINOTRANSFERASE 29 IU/L (14-46); BILIRUBIN,TOTAL 0.4 mg/dL (0.1-1.4); CALCIUM 8.4 mg/dL (8.5-10.4); CARBON DIOXIDE 29 mEq/l (22-31); CHLORIDE 107 mEq/L (97-110); CREATININE 0.3 mg/dL (0.6-1.0); GLOMERULAR FILTRATION RATE > 60; GLUCOSE 136 mg/dL (70-100); MAGNESIUM 1.7 mg/dL (1.6-2.3); POTASSIUM 3.9 mEq/L (3.5-5.2); SODIUM 142 mEq/L (134-144); TOTAL PROTEIN 5.2 g/dL (6.3-8.2)
[2016-11-24 06:44] LABS: INR 1.2 (0.83-1.16); PROTIME(PATIENT) 15.2 SEC (12.0-15.0)
[2016-11-24 06:45] LABS: APTT 30.4 SEC (23.0-38.0)
[2016-11-24] MEDS ORDERED: K PHOS 10 MMOL in D5W 250 ML IV ONE (08:30)
[2016-11-24] MEDS: ENOXAPARIN 30 MG/0.3 ML SYR SC SCH (08:35)
[2016-11-24] MEDS: TOBRAMYCIN 0.3% 5 ML OPHT.BTL EACHEYE SCH (08:36)
--- NOTE | 2016-11-24 12:30 | PDINTPN ---
Customer Success Specialist Progress Note Assessment/Plan: Assessment: Aspiration Pneumonia: Had initial event 11/21, then probably re-aspirated TF . Bronch on 11/23 with more copious secretions than initial bronch, was able to go off BiPAP and did well on Vapotherm. I had a talk with parents, discussed acute management of decompensation as well as long-term prognosis. If she can survive current decompensation, I suspect her prognosis is fairly good so long as she doesn't aspirate. Hopefully just has temporary gastroenteritis, now with paresis related to acute illness, which will resolve with time. CXR today shows migration of extensive opacities. Tachycardia: Now down below 100 most of the time. Hypernatremia: Resolved Metabolic acidosis: Resolved. Likely due in part to starvation, with elevated b- hydroxybutyrate. Nutrition: Aspirated with attempts to feed. Now on TPN. Plan: Bronch now. Continue Vapotherm. BiPAP PRN. Intubate (for a few days) if decompensates. Hold TF for at least a few days. Consider TPN in the meantime. Possibility of jejunal extension can also be addressed with nutrition and IR this coming week. If she recovers in a reasonable amount of time from her current decompensation, cautiously restart TF. 11/24/16 12:31 Subjective: Non-verbal. Objective: Vital Signs Temp Pulse Resp BP Pulse Ox 37.2 C 99 21 H 107/90 H 96 11/24/16 08:00 11/24/16 08:00 11/24/16 08:00 11/24/16 08:00 11/24/16 08:00 Microbiology 11/21/16 16:00 Gram Stain - Final Lung Bilateral - Bronchial Washings Bronchial Washings Culture - Final Laboratory Results 11/24/16 06:00 11/24/16 06:00 11/23/16 11/24/16 11/25/16 05:59 05:59 05:59 Intake Total 1364 4393 Output Total 1 Balance 1363 4393 PT 15.2 SEC (12.0-15.0) H 11/24/16 06:00 INR 1.20 (0.83-1.16) H 11/24/16 06:00 CXR: Return of right opacity, persistent left base opacity. Images reviewed. Physical Exam - Physical Exam General Appearance: alert, mild distress EENT: normal ENT inspection Neck: normal inspection Respiratory: decreased breath sounds (right), crackles (left) Cardiac/Chest: regular rate, rhythm, No edema Abdomen: normal bowel sounds, non-tender Skin: normal color, warm/dry Extremities: normal inspection Neuro/Psych: alert (more alert today.) ICD10 Worksheet Patient Problems: Problems Problem Status Onset Aspiration pneumonia Acute
[2016-11-24] MEDS ORDERED: LIDOCAINE 2% JELLY 5 ML TUBE TP ONE (12:46)
[2016-11-24] MEDS ORDERED: LIDOCAINE 1% 300 MG/30 ML SDV MISC ONE ×2 (12:46→13:00)
--- NOTE | 2016-11-24 12:53 | HOSPPROG ---
Hospitalist Progress Note Assessment/Plan: Acute respiratory failure secondary to aspiration PNA - Reaspirated with resumption of tube feeds 11/23, CXR's with migrating infiltrates, suspect recurring aspiration depending on position. S/P bronch with removal of secretions and e/o tube feeds in airways. -cont unasyn -bronch again today for secretions / aspiration -cont vapotherm, prn bipap support for now -family open to intubation for limited time if pt decompensates Trisomy 18 - non-verbal at baseline, though quite active per family and good QOL at baseline Metabolic acidosis - resolved with IVF's Constipation - resume bowel protocol FEN - holding tube feeds due to aspiration concern, NPO for now. -cont tpn Full code PPLX - Lovenox Dispo - cont inpt. Remains full code, intubation ok if needed for limited time. High risk. Subjective: Pt awake, off bipap, eyes open and a bit more interactive today, though non-verbal at baseline. Increased WOB noted. No fevers. Objective: Vital Signs Temp Pulse Resp BP Pulse Ox 37.7 C 83 26 H 108/60 96 11/24/16 12:00 11/24/16 12:00 11/24/16 12:00 11/24/16 12:00 11/24/16 12:00 Microbiology 11/21/16 16:00 Gram Stain - Final Lung Bilateral - Bronchial Washings Bronchial Washings Culture - Final Laboratory Results 11/24/16 06:00 11/24/16 06:00 11/23/16 11/24/16 11/25/16 05:59 05:59 05:59 Intake Total 1364 4393 Output Total 1 Balance 1363 4393 PT 15.2 SEC (12.0-15.0) H 11/24/16 06:00 INR 1.20 (0.83-1.16) H 11/24/16 06:00 - Physical Exam Constitutional: no apparent distress Eyes: PERRL Ears, Nose, Mouth, Throat: moist mucous membranes Cardiovascular: regular rate and rhythym Respiratory: inspiratory crackles, respiratory distress Gastrointestinal: normoactive bowel sounds, soft, non-tender abdomen Skin: warm ICD10 Worksheet Patient Problems: Problems Problem Status Onset Aspiration pneumonia Acute
[2016-11-24] MEDS ORDERED: ACETAMINOPHEN 650 MG SUPP PR PRN (12:55)
[2016-11-24] MEDS ORDERED: fentaNYL 100 MCG/2 ML INJ IV ONE (13:00)
[2016-11-24] MEDS ORDERED: MIDAZOLAM 2 MG/2 ML VIAL IVP ONE (13:00)
--- NOTE | 2016-11-24 13:39 | GPN ---
[f rep st] PROCEDURE NOTE DATE OF PROCEDURE: 11/24/2016 PROCEDURE: Flexible fiberoptic bronchoscopy. REASON FOR THE PROCEDURE: Aspiration with retained secretions and hypoxemia. PROCEDURE NOTE: The risks and benefits of the procedure were explained to the patient's parents, who agreed to proceed. The entire procedure was performed in the intensive care unit with the patient u nder blood pressure, EKG, and oximetry monitoring. It was my assessment that there was no risk of ai rborne infection from the procedure. After an appropriate time-out, a bite block was placed between the teeth and the patient was given sedation with 1 mg of Versed and 100 mcg of fentanyl. The bronch oscope was advanced through the bite block into the posterior pharynx, where there was a moderate joe unt of bloody purulent secretions which were suctioned. I then advanced the bronchoscope through the vocal cords into the trachea, where there were mucopurulent secretions circling the distal trachea. These were suctioned. They were coming more prominently from the right mainstem bronchus, and these were suctioned with some difficulty, almost occluding the bronchoscope once. These were finally corazon ared and all airways distally were patent. I then turned to the left-sided airways, where a small-mo derate amount of mucopurulent secretions were seen and were easily suctioned. All airways were paten t. There were no endobronchial abnormalities. A small volume lavage was performed of both lower lob es, with widely patent airways and no significant residual secretions bilaterally. The patient hunter ated the procedure well with just a brief fall in her saturations to the 80s. No specimens were sent . There were no complications apparent at the end of the procedure. /[id number]/MODL
[2016-11-24] MEDS: TPN W/ FAMOTIDINE 1 EA BAG IV SCH (20:27)
[2016-11-25] MEDS: AMPICILLIN/SULBACTAM 1.5 GM in NS 50 ML IV SCH ×3 (06:26→18:02)
[2016-11-25 06:41] LABS: % IMMATURE GRANULYOCYTES 0.6 % (0.0-1.1); ABSOLUTE IMMATURE GRANULOCYTES 0.05 10^3/uL (0.00-0.10); ADD DIFF? NO; ADD MORPH? NO; ADD SCAN? NO; ATYPICAL LYMPHOCYTE FLAG 10 (0-99); FRAGMENT RBC FLAG 0 (0-99); HEMATOCRIT 31.8 % (38.0-47.0); LEFT SHIFT FLG 10 (0-99); LIPEMIA HEMOLYSIS FLAG 90 (0-99); MEAN CELL HEMOGLOBIN 31.8 pg (27.9-34.1); MEAN CELL HEMOGLOBIN CONCENTR. 34.6 g/dL (32.4-36.7); MEAN CELL VOLUME 91.9 fL (81.5-99.8); MEAN PLATELET VOLUME 9.9 fL (8.7-11.7); PLATELET CLUMPS FLAG 0 (0-99); PLATELET COUNT 145 10^3/uL (150-400); RED BLOOD CELL COUNT 3.46 10^6/uL (4.18-5.33); RED CELL DISTRIBUTION WIDTH 12.3 % (11.5-15.2)
[2016-11-25 06:50] LABS: INR 1.11 (0.83-1.16); PROTIME(PATIENT) 14.2 SEC (12.0-15.0)
[2016-11-25 06:51] LABS: APTT 29.2 SEC (23.0-38.0)
[2016-11-25 06:53] LABS: ALANINE AMINOTRANSFERASE 28 IU/L (9-52); ALBUMIN 3.1 g/dL (3.5-5.0); ALKALINE PHOSPHATASE 62 IU/L (38-126); ANION GAP 12 mEq/L (8-16); ASPARTATE AMINOTRANSFERASE 28 IU/L (14-46); BILIRUBIN,TOTAL 0.3 mg/dL (0.1-1.4); CALCIUM 8.9 mg/dL (8.5-10.4); CARBON DIOXIDE 27 mEq/l (22-31); CHLORIDE 101 mEq/L (97-110); CREATININE 0.3 mg/dL (0.6-1.0); GLOMERULAR FILTRATION RATE > 60; GLUCOSE 112 mg/dL (70-100); MAGNESIUM 1.8 mg/dL (1.6-2.3); POTASSIUM 4.3 mEq/L (3.5-5.2); SODIUM 140 mEq/L (134-144); TOTAL PROTEIN 5.6 g/dL (6.3-8.2); TRIGLYCERIDE 62 mg/dL (35-135)
[2016-11-25] MEDS: TOBRAMYCIN 0.3% 5 ML OPHT.BTL EACHEYE SCH (10:04)
[2016-11-25] MEDS: ENOXAPARIN 40 MG/0.4 ML SYR SC SCH (10:04)
[2016-11-25] MEDS: ALBUTEROL 3 ML DEYVIAL IH SCH ×3 (11:49→21:39)
[2016-11-25] MEDS: ACETYLCYSTEINE 20% IH/PO 4 ML VIAL IH SCH ×3 (11:49→21:39)
--- NOTE | 2016-11-25 12:35 | PDINTPN ---
General Worker Progress Note Assessment/Plan: Assessment: Aspiration Pneumonia: Had initial event 11/21, then probably re-aspirated TF . Bronch 11/24 with sig secretions persisting. CXR today improved. O2 needs better but still high. Tachycardia: Resolved. Hypernatremia: Resolved. Metabolic acidosis: Resolved. Nutrition: Aspirated with attempts to feed. Now on TPN. Trisomy 18. Severe kyphoscoliosis and congenital deformities. Plan: Cont supportive care in ICU. Add BD RX and mucomyst. Will hold on bronch today as congestion and secretions appear to be better. Cont TPN for now, consider restarting TFs in the next day or so. Consider jejunal extension of FT. Cont supportive care otherwise. 35 min CC time spent with patient. Duscussed with parents, RT, Hospitalist, ICU MD Team. Subjective: Non verbal, in her own WC. No distress. Objective: Vital Signs Temp Pulse Resp BP Pulse Ox 36.6 C 98 26 H 129/83 H 93 11/25/16 04:00 11/25/16 12:00 11/25/16 12:00 11/25/16 12:00 11/25/16 12:00 Laboratory Results 11/25/16 06:15 11/25/16 06:15 11/24/16 11/25/16 11/26/16 05:59 05:59 05:59 Intake Total 4393 1950 Output Total 4 Balance 4393 1946 PT 14.2 SEC (12.0-15.0) 11/25/16 06:15 INR 1.11 (0.83-1.16) 11/25/16 06:15 Physical Exam - Physical Exam General Appearance: thin (In her WC), No alert EENT: other (O2 mask in place) Neck: normal inspection (No JVD) Respiratory: decreased breath sounds, rales (Few at bases), rhonchi (Few, coarse BSs) Cardiac/Chest: regular rate, rhythm Abdomen: normal bowel sounds, non-tender, soft Skin: warm/dry Extremities: other (Louie deformities) Neuro/Psych: cognition abnormalities, No no motor/sensory deficits ICD10 Worksheet Patient Problems: Problems Problem Status Onset Aspiration pneumonia Acute
--- NOTE | 2016-11-25 16:50 | ASMTCMCOM ---
CM Note CM Note Notes: Patient on 15 liters oxymask, TPN, constipation. Met with patient's mother, Valeriano in "Family Meeting". 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 Mother reports that patient has not been in and out of hospitals or ever needed O2. Patient has needed a PEG tube most of her life, but has never aspirated before. Mother feels that quality of life very important. Patient is active with her caregiver and goes to camps, on trips, photographs. Her family and caregivers know her needs by watching her facial expressions, nods and shakes. Mother was concerned on admission that medical staff wanted to intubate patient, she opted for a bipap which has seemed to be appropriate. Mother very concerned that if patient was on a vent her future status would decline as well as her quality of life. Mother also concerned about patient's need for O2 (now needs 15 lits) and constipation. Patient will return home with her parents, HC and caregivers at time of discharge. Date Signed: 11/25/2016 04:49 PM Electronically Signed By:Carolyn Hall LCSW
--- NOTE | 2016-11-25 17:16 | HOSPPROG ---
Hospitalist Progress Note Assessment/Plan: * Acute respiratory failure due to aspiration event -s/p multiple bronchs - may need again in am -IV Unasyn * Acute N/V with aspiration -per family, this is not a chronic issue -check CT abd/pelvis - previous attempt advance TF failed * Trisomy 18 * Severe kyphoscoliosis * Nutrition - chronic tube feeds -per family she does not aspirate at baseline - handles saliva without difficulty -no previous history of aspiration * Metabolic encephalopathy * Severe sepsis * h/o recurrent pancreatitis - lipase okay -has not had cholecystectomy Subjective: no events Objective: Vital Signs Temp Pulse Resp BP Pulse Ox 36.6 C 76 20 114/74 99 11/25/16 04:00 11/25/16 16:10 11/25/16 16:10 11/25/16 16:00 11/25/16 16:10 Laboratory Results 11/25/16 06:15 11/25/16 06:15 11/24/16 11/25/16 11/26/16 05:59 05:59 05:59 Intake Total 4393 1950 Output Total 4 Balance 4393 1946 PT 14.2 SEC (12.0-15.0) 11/25/16 06:15 INR 1.11 (0.83-1.16) 11/25/16 06:15 d/w Dr. Hunter jiang regarding plan of care CXR viewed, my personal interpretation is - better but persistent right lung collapse - Physical Exam Constitutional: no apparent distress, appears nourished, not in pain Cardiovascular: regular rate and rhythym, no murmur, rub, or gallop Respiratory: inspiratory crackles, respiratory distress, rhonchi, No expiratory wheeze Gastrointestinal: normoactive bowel sounds, soft, non-tender abdomen, no palpable masses Skin: no rashes or abrasions, no fluctuance, no induration Neurologic: No AAOx3 Psychiatric: poor insight, poor judgement, poor memory, No interacting appropriately, No agitated ICD10 Worksheet Patient Problems: Problems Problem Status Onset Aspiration pneumonia Acute
[2016-11-25] MEDS ORDERED: IOPAMIDOL (ISOVUE-300) 100 ML BTL ONE (18:02)
[2016-11-25] MEDS: TPN W/ FAMOTIDINE 1 EA BAG IV SCH (20:31)
[2016-11-26] MEDS: AMPICILLIN/SULBACTAM 1.5 GM in NS 50 ML IV SCH ×5 (00:26→22:57)
[2016-11-26] MEDS: ACETYLCYSTEINE 20% IH/PO 4 ML VIAL IH SCH ×4 (06:11→20:32)
[2016-11-26] MEDS: ALBUTEROL 3 ML DEYVIAL IH SCH ×4 (06:11→20:31)
[2016-11-26 06:40] LABS: CARBON DIOXIDE 27 mEq/l (22-31); CHLORIDE 102 mEq/L (97-110); POTASSIUM 4.5 mEq/L (3.5-5.2); SODIUM 140 mEq/L (134-144)
[2016-11-26 06:41] LABS: ALANINE AMINOTRANSFERASE 30 IU/L (9-52); ALBUMIN 3.4 g/dL (3.5-5.0); ALKALINE PHOSPHATASE 62 IU/L (38-126); ANION GAP 11 mEq/L (8-16); ASPARTATE AMINOTRANSFERASE 24 IU/L (14-46); BILIRUBIN,TOTAL 0.4 mg/dL (0.1-1.4); CREATININE 0.3 mg/dL (0.6-1.0); GLOMERULAR FILTRATION RATE > 60; GLUCOSE 105 mg/dL (70-100)
[2016-11-26 07:05] LABS: APTT 33.1 SEC (23.0-38.0); INR 1.08 (0.83-1.16); PROTIME(PATIENT) 13.9 SEC (12.0-15.0)
[2016-11-26] MEDS: ENOXAPARIN 40 MG/0.4 ML SYR SC SCH (10:40)
[2016-11-26] MEDS: TOBRAMYCIN 0.3% 5 ML OPHT.BTL EACHEYE SCH (10:40)
[2016-11-26] MEDS: PANTOPRAZOLE SODIUM 40 MG in NS 100 ML IV SCH (10:50)
--- NOTE | 2016-11-26 11:30 | PDINTPN ---
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 Admitted 11 21 with nausea and vomiting secondary to presumed gastroenteritis. This was associated with aspiration and severe aspiration pneumonia. Aspiration Pneumonia: Had initial event 11/21, then probably re-aspirated TF . Bronch 11/24 with sig secretions persisting. CXR has improved significantly , with increasing aeration in the right upper lung. Oxygen requirements have significantly decreased. No indication for repeat bronchoscopy today, however she still may need 1 within the next few days to reassess and remove secretions at the right base if this does not clear. Nausea and vomiting: Resolved. This appeared to be an acute episode of gastroenteritis. The patient has not had similar problems prior to this admission and there is no evidence of ongoing gastric or GI dysfunction. Small volume tube feedings can be restarted at this time: 2 mLs of tube feeding with 2 mL is a of water three times daily today. She does have some possible gastric thickening on CT scan of the abdomen, GI has recommended a barium study. We will try to get this this afternoon. Tachycardia: Resolved. Hypernatremia: Resolved. Metabolic acidosis: Resolved. Nutrition: Aspirated with attempts to feed. Currently on TPN but she should be able to be transitioned back to gastric feedings.. Trisomy 18. Severe kyphoscoliosis and congenital deformities. Plan: Cont supportive care in ICU. Continue BD RX and mucomyst. Will continue to hold on bronch today as congestion, x-ray, and oxygen requirements have significantly improved. Will repeat x-ray tomorrow in reassess. Cont TPN for now, but I will restart low volume bolus tube feedings and fluids today. No apparent indication for a jejunal extension of FT. For barium evaluation of gastric thickening today. Cont antibiotics and supportive care otherwise. 35 min CC time spent with patient. Duscussed with parents, Dietary, RT, Hospitalist. Subjective: In her own wheelchair. Good cough at times. Looking around. Shakes head occasionally to questions Objective: Vital Signs Temp Pulse Resp BP Pulse Ox 36.8 C 81 24 H 95/65 L 100 11/26/16 08:00 11/26/16 11:10 11/26/16 08:00 11/26/16 08:00 11/26/16 11:10 Laboratory Results 11/25/16 06:15 11/26/16 05:55 11/25/16 11/26/16 11/27/16 05:59 05:59 05:59 Intake Total 1950 1204.4 Output Total 4 Balance 1946 1204.4 PT 13.9 SEC (12.0-15.0) 11/26/16 05:55 INR 1.08 (0.83-1.16) 11/26/16 05:55 CXR: Significant improvement in right upper lung aeration. Still has consolidation at the right base. Physical Exam - Physical Exam General Appearance: alert, no apparent distress, thin, other (In chair) EENT: other (On OxyMask at 2.5 L) Neck: normal inspection (No JVD) Respiratory: lungs clear (Anteriorly), decreased breath sounds (At bases), rhonchi (With cough, breath sounds somewhat coarse), No wheezing Cardiac/Chest: regular rate, rhythm Abdomen: normal bowel sounds, non-tender, soft, other (Peg button in place) Pelvic Exam: other (Daiper in place, incontinent) Skin: normal color, warm/dry Extremities: No pedal edema Neuro/Psych: cognition abnormalities (Brighter/vp securities, starting to return to her baseline level of mental status/communication), No no motor/sensory deficits ICD10 Worksheet Patient Problems: Problems Problem Status Onset Aspiration pneumonia Acute
--- NOTE | 2016-11-26 14:23 | HOSPPROG ---
Hospitalist Progress Note Assessment/Plan: * Acute respiratory failure due to aspiration event -s/p multiple bronchs - CXR improving -IV Unasyn * Acute N/V with aspiration -UGI shows significant ongoing GERD to upper esophagus -consider change PEG to J tube * Trisomy 18 * Gastric/duodenal thickening -no evidence for GOO with contrast arriving in colon -d/w Dr. Campos - consider EGD -empiric PPI, check Hpylori abx * Severe kyphoscoliosis * Nutrition - chronic tube feeds * Metabolic encephalopathy * Severe sepsis * h/o recurrent pancreatitis - lipase okay/pancreas look okay on CT -has not had cholecystectomy Subjective: no new events Objective: Vital Signs Temp Pulse Resp BP Pulse Ox 36.8 C 93 25 H 103/81 H 94 11/26/16 12:00 11/26/16 12:00 11/26/16 12:00 11/26/16 12:00 11/26/16 12:00 Laboratory Results 11/25/16 06:15 11/26/16 05:55 11/25/16 11/26/16 11/27/16 05:59 05:59 05:59 Intake Total 1950 1204.4 Output Total 4 Balance 1946 1204.4 PT 13.9 SEC (12.0-15.0) 11/26/16 05:55 INR 1.08 (0.83-1.16) 11/26/16 05:55 d/w Dr. Campos - GI will consult in am, barium study recommended Barium UGI - significant reflux to upper third of esophagus - Physical Exam Constitutional: no apparent distress, appears nourished, not in pain Cardiovascular: regular rate and rhythym, no murmur, rub, or gallop Respiratory: no respiratory distress, inspiratory crackles, rhonchi, No expiratory wheeze Gastrointestinal: normoactive bowel sounds, soft, non-tender abdomen, no palpable masses Skin: no rashes or abrasions, no fluctuance, no induration Neurologic: No AAOx3 Psychiatric: encephalopathic, poor insight, poor judgement, poor memory, No interacting appropriately, No agitated ICD10 Worksheet Patient Problems: Problems Problem Status Onset Aspiration pneumonia Acute
[2016-11-26] MEDS ORDERED: ACETAMINOPHEN 650 MG/20.3 ML UDCUP TUBE PRN (16:00)
[2016-11-26] MEDS ORDERED: BISACODYL 10 MG SUPP PR ONE (16:25)
[2016-11-26] MEDS: BISACODYL 10 MG SUPP PR PRN (17:26)
[2016-11-26] MEDS: TPN W/ FAMOTIDINE 1 EA BAG IV SCH (20:13)
[2016-11-27 04:46] LABS: ANION GAP 9 mEq/L (8-16); CALCIUM 9.8 mg/dL (8.5-10.4); CARBON DIOXIDE 27 mEq/l (22-31); CHLORIDE 102 mEq/L (97-110); CREATININE 0.4 mg/dL (0.6-1.0); GLOMERULAR FILTRATION RATE > 60; GLUCOSE 111 mg/dL (70-100); POTASSIUM 4.5 mEq/L (3.5-5.2); SODIUM 138 mEq/L (134-144)
[2016-11-27] MEDS: ACETYLCYSTEINE 20% IH/PO 4 ML VIAL IH SCH ×4 (06:04→20:22)
[2016-11-27] MEDS: ALBUTEROL 3 ML DEYVIAL IH SCH ×4 (06:04→20:22)
[2016-11-27] MEDS: AMPICILLIN/SULBACTAM 1.5 GM in NS 50 ML IV SCH ×3 (06:17→18:15)
[2016-11-27] MEDS ORDERED: METOCLOPRAMIDE 10 MG/2 ML VIAL IVP ONE (09:30)
[2016-11-27] MEDS: PANTOPRAZOLE SODIUM 40 MG in NS 100 ML IV SCH (09:41)
[2016-11-27] MEDS: BISACODYL 10 MG SUPP PR SCH (09:41)
[2016-11-27] MEDS: ENOXAPARIN 40 MG/0.4 ML SYR SC SCH (09:41)
[2016-11-27] MEDS: TOBRAMYCIN 0.3% 5 ML OPHT.BTL EACHEYE SCH (09:42)
[2016-11-27] MEDS ORDERED: METOCLOPRAMIDE 10 MG/2 ML VIAL IVP PRN (10:58)
--- NOTE | 2016-11-27 10:59 | GCON ---
[f rep st] CONSULTATION INPATIENT CONSULTATION REQUESTING PHYSICIAN: Dr. Juares. REASON FOR CONSULTATION: Difficulties with feeding. CHIEF COMPLAINT: Pneumonia. HISTORY OF PRESENT ILLNESS: Briefly, the patient is a 21-year-old female with a history of trisomy 1 8. She was admitted to the hospital approximately 1 week ago after having a witnessed a vomiting epi sode at her care facility. This was followed by some difficulty breathing. She was brought to the e mergency room for evaluation. She has been diagnosed with an aspiration pneumonia. She is currently on antibiotics with pulmonary support related to this. She underwent bronchoscopy, as well. There was some concern that she may have aspirated PEG tube feedings. The patient has had her current PEG tube for almost 18 years. It has been changed periodically. She had been tolerating PEG tube feeds without trouble until the day of her admission. She has had no r e-attempt of PEG tube feeds since her admission. She has been on IV fluids and TPN while she is reso lving her pneumonia. Yesterday, she underwent an upper GI series with contrast administered through her PEG site. There w as no episode of gastric outlet obstruction. There was no concern for peptic disease. She did have some esophageal reflux intermittently that extended even to the upper 1/3 of the esophagus. Of note, she had a test done in the supine position. According to her family, her only prior episode of pneu monia occurred during an episode of pancreatitis. At that time, it was not felt to be an aspiration pneumonia, but instead an atelectatic process related to underlying pancreatitis resolution. PAST MEDICAL HISTORY: Includes trisomy 18, pancreatitis, and intussusception. FAMILY HISTORY: Positive for cancer. MEDICATIONS: No home medicines. ALLERGIES: None. SOCIAL HISTORY: The patient does not drink, smoke, or use drugs. She lives in a nursing facility du e to her underlying disabilities. REVIEW OF SYSTEMS: Could not be obtained due to patient's nonverbal status. PHYSICAL EXAM: GENERAL: This is a nonverbal, minimally responsive female with obvious physical defo rmities related to her underlying diagnosis of trisomy 18. HEENT: Mucous membranes are moist. Ther e are no oral ulcers. CARDIOVASCULAR: Tachycardia without murmur, rubs, or gallops. RESPIRATORY: Diffuse rhonchi. GI: No abdominal tenderness. There is a G-tube in place. SKIN: Warm and dry wit h normal color. She is not showing cyanosis. NEUROLOGIC: Unable to assess due to her status. PSYC HIATRIC: Unable to assess due to her status. LABORATORY TESTING: White count if 8.8, hemoglobin of 11.0, hematocrit of 31.8, platelet count of 14 5. INR 1.08. Sodium of 138, potassium of 4.5, chloride of 102, bicarb of 27, BUN of 10, creatinine of 0.4. H pylori testing was negative. Upper GI series on 11/26/2016 revealed no evidence of gastri c outlet obstruction. It did reveal some reflux to the upper esophagus. IMPRESSION: At this point, it is difficult to assess the reason for the patient's initial episode of nausea/vomiting. It does not appear that she has underlying pancreatitis. Helicobacter pylori test ing was negative. There is no evidence of gastric outlet obstruction. Upper GI series did not revea l any peptic disease. It is possible that she had an episode of food poisoning or other toxic injury , which led to her symptoms and ultimately to aspiration. At this time, we cannot conclude that her aspiration event was related to her G tube; or, at least, that her G tube needs to be changed in some way that may prevent recurrence of her current presentation. At this time, I recommend the patient resume her G-tube feedings. Perhaps they should start with mor e frequent and smaller boluses, in order to assess. It is prudent to allow her pneumonia to resolve more completely prior to restarting tube feeds, just in case her tube feeds will lead to additional a spiration. If, in fact, it is noted that she has recurrence of aspiration related to bolus feeding through her G tube, she may need to have a change to a J-tube. I think this ultimately is an unlikely eventuality . This plan of care was discussed at length with the patient's family at the patient's bedside. /[id number]/MODL
--- NOTE | 2016-11-27 12:39 | ASMTCMCOM ---
CM Note CM Note Notes: Patient discussed in am rounds, Her oxygen needs are improved. She is to restart tube feedings. Anticipate return to home with current support from caregivers and parents. CM available should needs arise. Date Signed: 11/27/2016 12:38 PM Electronically Signed By:Lorie Blunt RN
[2016-11-27] MEDS: NS 1,000 ML IV SCH (13:13)
--- NOTE | 2016-11-27 15:08 | HOSPPROG ---
Hospitalist Progress Note Assessment/Plan: * Acute respiratory failure due to aspiration event of N/V -s/p multiple bronchs - CXR improving * Aspiration PNA -IV Unasyn * Trisomy 18 * Gastric distention with retention, GERD, mild thickening of pylorus - but no GOO -empiric PPI -advance tube feeds and monitor closely -reglan as needed * Severe kyphoscoliosis * Nutrition - chronic tube feeds -on TPN until TF tolerated * Metabolic encephalopathy * Severe sepsis * h/o recurrent pancreatitis - lipase okay/pancreas look okay on CT -has not had cholecystectomy Subjective: Some GI distress this am, improved with reglan Objective: Vital Signs Temp Pulse Resp BP Pulse Ox 36.8 C 107 H 17 116/75 95 11/27/16 12:00 11/27/16 12:00 11/27/16 12:00 11/27/16 12:00 11/27/16 12:00 Laboratory Results 11/25/16 06:15 11/27/16 04:20 11/26/16 11/27/16 11/28/16 05:59 05:59 05:59 Intake Total 1204.4 1427 Balance 1204.4 1427 PT 13.9 SEC (12.0-15.0) 11/26/16 05:55 INR 1.08 (0.83-1.16) 11/26/16 05:55 d/w Dr. Marvin - CXR much better today CXR improved, my personal interpretation is - improving lobar collapse and infiltrate - Physical Exam Constitutional: no apparent distress, appears nourished, not in pain Cardiovascular: regular rate and rhythym, no murmur, rub, or gallop Respiratory: no respiratory distress, no rales or rhonchi, clear to auscultation Gastrointestinal: normoactive bowel sounds, soft, non-tender abdomen, no palpable masses Skin: no rashes or abrasions, no fluctuance, no induration Neurologic: No AAOx3 Psychiatric: encephalopathic, No interacting appropriately, No thought process linear, No agitated ICD10 Worksheet Patient Problems: Problems Problem Status Onset Aspiration pneumonia Acute
[2016-11-28] MEDS: AMPICILLIN/SULBACTAM 1.5 GM in NS 50 ML IV SCH ×5 (00:05→23:16)
[2016-11-28] MEDS: ACETYLCYSTEINE 20% IH/PO 4 ML VIAL IH SCH ×4 (05:52→20:41)
[2016-11-28] MEDS: ALBUTEROL 3 ML DEYVIAL IH SCH ×4 (05:52→20:41)
[2016-11-28 07:17] LABS: % IMMATURE GRANULYOCYTES 1.1 % (0.0-1.1); ABSOLUTE IMMATURE GRANULOCYTES 0.15 10^3/uL (0.00-0.10); ADD DIFF? NO; ADD MORPH? NO; ADD SCAN? NO; ATYPICAL LYMPHOCYTE FLAG 10 (0-99); FRAGMENT RBC FLAG 0 (0-99); HEMATOCRIT 29.8 % (38.0-47.0); HEMOGLOBIN 10.3 g/dL (12.6-16.3); LEFT SHIFT FLG 10 (0-99); LIPEMIA HEMOLYSIS FLAG 90 (0-99); MEAN CELL HEMOGLOBIN 32.1 pg (27.9-34.1); MEAN CELL HEMOGLOBIN CONCENTR. 34.6 g/dL (32.4-36.7); MEAN CELL VOLUME 92.8 fL (81.5-99.8); MEAN PLATELET VOLUME 10.3 fL (8.7-11.7); PLATELET CLUMPS FLAG 0 (0-99); PLATELET COUNT 205 10^3/uL (150-400); RED BLOOD CELL COUNT 3.21 10^6/uL (4.18-5.33); RED CELL DISTRIBUTION WIDTH 12.6 % (11.5-15.2)
[2016-11-28 07:48] LABS: ANION GAP 8 mEq/L (8-16); CALCIUM 8.8 mg/dL (8.5-10.4); CARBON DIOXIDE 26 mEq/l (22-31); CHLORIDE 105 mEq/L (97-110); CREATININE 0.4 mg/dL (0.6-1.0); GLOMERULAR FILTRATION RATE > 60; GLUCOSE 75 mg/dL (70-100); POTASSIUM 4.2 mEq/L (3.5-5.2); SODIUM 139 mEq/L (134-144)
[2016-11-28] MEDS ORDERED: NS 500 ML IV ONE (09:26)
[2016-11-28] MEDS: ENOXAPARIN 40 MG/0.4 ML SYR SC SCH (10:49)
[2016-11-28] MEDS: TOBRAMYCIN 0.3% 5 ML OPHT.BTL EACHEYE SCH (10:59)
[2016-11-28] MEDS: PANTOPRAZOLE SODIUM 40 MG in NS 100 ML IV SCH (11:11)
[2016-11-28] MEDS: NS 1,000 ML IV SCH (13:08)
--- NOTE | 2016-11-28 14:57 | HOSPPROG ---
Hospitalist Progress Note Assessment/Plan: * Acute respiratory failure due to aspiration event of acute N/V -s/p multiple bronchs - CXR improving * Aspiration PNA -IV Unasyn * Trisomy 18 * Gastric distention with retention, GERD, mild thickening of pylorus - but no GOO -empiric PPI -advance tube feeds and monitor closely -reglan as needed * Severe kyphoscoliosis * Nutrition - chronic tube feeds -off TPN * Metabolic encephalopathy - now at baseline * Severe sepsis * h/o recurrent pancreatitis - lipase okay/pancreas look okay on CT -has not had cholecystectomy Possible discharge home tomorrow if TF tolerated. Subjective: Mom slowly increasing tube feeds, about half of normal currently. Objective: Vital Signs Temp Pulse Resp BP Pulse Ox 36.8 C 78 26 H 83/62 L 98 11/28/16 08:05 11/28/16 12:33 11/28/16 12:33 11/28/16 08:05 11/28/16 12:33 Laboratory Results 11/28/16 06:00 11/28/16 06:00 11/27/16 11/28/16 11/29/16 05:59 05:59 05:59 Intake Total 1427 1000 1130 Balance 1427 1000 1130 PT 13.9 SEC (12.0-15.0) 11/26/16 05:55 INR 1.08 (0.83-1.16) 11/26/16 05:55 - Physical Exam Constitutional: no apparent distress, appears nourished, not in pain Cardiovascular: regular rate and rhythym, no murmur, rub, or gallop Respiratory: no respiratory distress, rhonchi, No expiratory wheeze, No inspiratory crackles Gastrointestinal: normoactive bowel sounds, soft, non-tender abdomen, no palpable masses Skin: no rashes or abrasions, no fluctuance, no induration Neurologic: No AAOx3 Psychiatric: No interacting appropriately, No thought process linear, No anxious , No agitated ICD10 Worksheet Patient Problems: Problems Problem Status Onset Aspiration pneumonia Acute
[2016-11-28] MEDS: BISACODYL 10 MG SUPP PR PRN (15:23)
[2016-11-29] MEDS: NS 1,000 ML IV SCH (05:23)
[2016-11-29] MEDS: AMPICILLIN/SULBACTAM 1.5 GM in NS 50 ML IV SCH ×2 (05:24→11:58)
[2016-11-29] MEDS: ALBUTEROL 3 ML DEYVIAL IH SCH ×2 (05:35→10:54)
[2016-11-29] MEDS: ACETYLCYSTEINE 20% IH/PO 4 ML VIAL IH SCH ×2 (05:36→10:55)
[2016-11-29 05:39] LABS: % IMMATURE GRANULYOCYTES 1.2 % (0.0-1.1); ABSOLUTE IMMATURE GRANULOCYTES 0.12 10^3/uL (0.00-0.10); ADD DIFF? NO; ADD MORPH? NO; ADD SCAN? NO; ATYPICAL LYMPHOCYTE FLAG 10 (0-99); FRAGMENT RBC FLAG 0 (0-99); HEMATOCRIT 29.2 % (38.0-47.0); HEMOGLOBIN 9.9 g/dL (12.6-16.3); LEFT SHIFT FLG 10 (0-99); LIPEMIA HEMOLYSIS FLAG 90 (0-99); MEAN CELL HEMOGLOBIN CONCENTR. 33.9 g/dL (32.4-36.7); MEAN CELL VOLUME 91.5 fL (81.5-99.8); MEAN PLATELET VOLUME 10.1 fL (8.7-11.7); PLATELET CLUMPS FLAG 10 (0-99); PLATELET COUNT 201 10^3/uL (150-400); RED BLOOD CELL COUNT 3.19 10^6/uL (4.18-5.33); RED CELL DISTRIBUTION WIDTH 12.4 % (11.5-15.2)
[2016-11-29 05:51] LABS: CALCIUM 8.9 mg/dL (8.5-10.4); CARBON DIOXIDE 25 mEq/l (22-31); CHLORIDE 103 mEq/L (97-110); CREATININE 0.4 mg/dL (0.6-1.0); GLOMERULAR FILTRATION RATE > 60; GLUCOSE 74 mg/dL (70-100); POTASSIUM 3.8 mEq/L (3.5-5.2)
[2016-11-29 08:34] VITALS: BP 96/62; RESP 16; TEMP 99.2
[2016-11-29] MEDS ORDERED: LANSOPRAZOLE SUSP 30MG/10ML UDSYR (Adult) TUBE SCH (09:00)
[2016-11-29] MEDS: ENOXAPARIN 40 MG/0.4 ML SYR SC SCH (09:32)
[2016-11-29] MEDS: BISACODYL 10 MG SUPP PR SCH (09:33)
[2016-11-29 11:20] VITALS: PULSE 120; O2SAT 93
[2016-11-29] MEDS: TOBRAMYCIN 0.3% 5 ML OPHT.BTL EACHEYE SCH (11:55)
[2016-11-29] MEDS ORDERED: guaiFENesin 200 MG/10 ML UDL PO PRN ×2 (12:50→12:54)
--- NOTE | 2016-11-29 12:52 | PDHOMEO2F ---
Home Oxygen Face to Face Home Orders: I certify that a physician or a nurse practitioner or physician's podiatric assistant has had a [id number] encounter with this patient on the date of this order due to the diagnosis listed, which relates to the primary reason the patient requires home oxygen. Alternative treatments have been tried, or considered, and deemed ineffective. It is anticipated that supplemental oxygen will result in improvement with treatment. Home oxygen qualifying diagnosis: restrictive lung disease due to severe kyphoscoliosis SpO2 on room air (%): 84 Frequency of home oxygen needed: continuous Home oxygen liters per minute: 1-2 Home oxygen delivery device: nasal cannula, other (blow by) Concentrator: Yes E-tanks for mobility and back up: No If ordering portable O2, is the patient mobile in the home?: No I certify that, based on these findings, the home oxygen is medically necessary for this patient for the following length of time. Length of time home oxygen needed: 1 month
--- NOTE | 2016-11-29 16:05 | ASDISCHSUM ---
Discharge Information Plan Status:Home with Home Health Medically Cleared to Leave: Discharge Date:11/29/2016 02:55 PM CM D/C Disposition:Home Health Service ADT D/C Disposition:Home, Routine, Self-Care Projected Discharge Date:11/29/2016 02:55 PM Transportation at D/C:Family Discharge Delay Reason: Follow-Up Date:11/29/2016 02:55 PM Discharge Slot: Final Diagnosis:Aspiration PNA, Vomiting, Dehydration Placement Information Patient Contact Information Contact Name:AJITH Relationship:Father Address:[address] City:[facility] Phone: [facility]/Zip Code:[place] [address] Email: Financial Information Financial Class: Primary Plan Desc:[employer] [place] Primary Plan Number:[id number] Secondary Plan Desc: Secondary Plan Number: Assessment Information [facility] CM Progress Note CM Note CM Note Notes: Patient admitted for likely aspiration PNA. She has a hx of Trisomy 18 and is non-verbal/non-communicative. I spoke with her mother Valeriano who provided backgrount on patient's living situation/activies. Patient lives at home with both parents and has a full-time live-in caregiver. She attends a program at [facility] 4x week. She sees an gear keeper, hippotherapist, and other osteopathic practitioners. She is on the Medicaid EBD voucher program. Her mother requested that I call her [facility] special events director Flora Sprague (?). I did so and left a message for Hope. I don't anticipate that patient will have any d/c needs because she is so well-supported at home, but if she does, CM will assist. Date Signed: 11/21/2016 02:14 PM Electronically Signed By:Ariana León RN [facility] CM Progress Note CM Note CM Note Notes: Left msg randall Hines at [facility] [phone]. Pt is on Bi-Pap and s/p brochoscopy yesterday. Date Signed: 11/22/2016 04:09 PM Electronically Signed By:MADDIE Harrington [facility] CM Progress Note CM Note CM Note Notes: Patient on 15 liters oxymask, TPN, constipation. Met with patient's mother, Valeriano in "Family Meeting". 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 Mother reports that patient has not been in and out of hospitals or ever needed O2. Patient has needed a PEG tube most of her life, but has never aspirated before. Mother feels that quality of life very important. Patient is active with her caregiver and goes to camps, on trips, photographs. Her family and caregivers know her needs by watching her facial expressions, nods and shakes. Mother was concerned on admission that medical staff wanted to intubate patient, she opted for a bipap which has seemed to be appropriate. Mother very concerned that if patient was on a vent her future status would decline as well as her quality of life. Mother also concerned about patient's need for O2 (now needs 15 lits) and constipation. Patient will return home with her parents, HC and caregivers at time of discharge. Date Signed: 11/25/2016 04:49 PM Electronically Signed By:Carolyn Hall LCSW [facility] CM Progress Note CM Note CM Note Notes: Patient discussed in am rounds, Her oxygen needs are improved. She is to restart tube feedings. Anticipate return to home with current support from caregivers and parents. CM available should needs arise. Date Signed: 11/27/2016 12:38 PM Electronically Signed By:Lorie Blunt RN [facility] CM Progress Note CM Note CM Note Notes: Pt to DC with no add'l needs than what her parents have in place. Date Signed: 11/29/2016 04:04 PM Electronically Signed By:Shelly Muñiz LCSW Intervention Information
--- NOTE | 2016-11-29 18:38 | GDS ---
[f rep st] DISCHARGE SUMMARY DISCHARGE DIAGNOSES: 1. Acute respiratory failure due to aspiration from acute nausea and vomiting. 2. Aspiration pneumonia. 3. Trisomy 18. 4. Gastric distention with mild retention, gastroesophageal reflux disease, and mild thickening of t he pylorus, but no gastric outlet obstruction. 5. Severe kyphoscoliosis with likely element of chronic respiratory failure. 6. Nutrition. 7. Dysphagia, status post PEG tube. 8. Metabolic encephalopathy. 9. Severe sepsis. 10. History of recurrent pancreatitis. HISTORY: The patient is a 21-year-old female, who had an acute episode of nausea and vomiting, subse quently aspirated, leading to acute respiratory failure. She was admitted to the ICU and did undergo multiple bronchs. She was treated with IV Unasyn. According to her mom, this aspiration event is v rashad acute, and she has been on tube feeds most of her life without any previous difficulties. We did do a CT scan of the abdomen and pelvis. It was unremarkable. We were trying to avoid an EGD, and s o we did an upper GI with barium, which showed gastric distention with some retention of the stomach. There was GERD to the upper third of the esophagus, and some mild thickening of the pylorus, but no gastric outlet obstruction. Decision was made to empirically with a proton pump inhibitor. Her tub e feeds were advanced very slowly, and she seemed to tolerate them, and is not having any difficulty at this time. She was briefly treated with TPN, but has now been discontinued since it appears to fe eds will be tolerated. DISCHARGE MEDICATIONS: Please see computerized record for full detailed list. NEW MEDICATIONS: 1. Augmentin 875 mg p.o. twice daily for 2 more days. 2. Prevacid suspension 30 mg per PEG tube daily. 3. Guaifenesin 200 mg q.4 hours as needed. ADDITIONAL DISCHARGE INSTRUCTIONS: 1. Continue to increase the tube feeds slowly back to her goal. On the morning of discharge, she wa s at 75% as administered by home her mom at bedside. 2. Greater than 30 minutes of time was spent arranging this discharge. The patient was seen and exa mined by me on the day of discharge. /[id number]/MODL
[2016-11-29 19:33] LABS: ANION GAP 14 mEq/L (8-16); SODIUM 142 mEq/L (134-144)
[2016-11-30] MEDS ORDERED: BISACODYL 10 MG SUPP PR SCH (09:00)
== END 2016-11-29 14:55 | disposition home or self-care (01) | DRG 871 ==
LOC: INTOOBSV 22:31 → F3N 23:40 → OBSVTOIN 11-21 02:04 → F2N 11-21 11:58 → F1N 11-27 12:39
PROVIDERS: ADMIT Student in an Organized Health Care Education/Training Program; ATTEND Student in an Organized Health Care Education/Training Program
DX: A41.9 Sepsis, unspecified organism (principal); R65.20 Severe sepsis without septic shock; J69.0 Pneumonitis due to inhalation of food and vomit; R13.10 Dysphagia, unspecified; J96.01 Acute respiratory failure with hypoxia; Q91.3 Trisomy 18, unspecified; G93.41 Metabolic encephalopathy; E87.0 Hyperosmolality and hypernatremia; Q67.5 Congenital deformity of spine; K21.9 Gastro-esophageal reflux disease without esophagitis; E87.2 Acidosis; Z51.5 Encounter for palliative care; Z87.440 Personal history of urinary (tract) infections; Z87.01 Personal history of pneumonia (recurrent); Z99.3 Dependence on wheelchair
CPT/HCPCS: 96374; 97161-GP; 97530-GP; C1751; J1650; J2250; J2405; J2765; J2997; J3010; J7608; Q9967

== ENCOUNTER 2018-05-28 08:57 | Inpatient (IN) | payer MEDICAID ==
[2018-05-28] MEDS ORDERED: NS 1,000 ML IV ONE (09:13)
[2018-05-28] MEDS ORDERED: AZITHROMYCIN IV 500 MG in D5W 250 ML IV ONE (09:13)
--- NOTE | 2018-05-28 09:13 | EDPHY ---
H & P Stated Complaint: cough, hypoxia Time Seen by Provider: 05/28/18 09:12 HPI/ROS: HPI: This is a 22-year-old female who presents with Chief Complaint: Cough, fever Location: Chest Quality: Cough Duration: 2-3 days Signs and Symptoms: + fever, no nausea, no vomiting, no diarrhea, no urinary symptoms, no chest pain, no shortness of breath, no wheezing, + cough, no sore throat, no neck stiffness, no joint pain, no swollen glands, no ear pain, no rash Timing: Acute, constant Severity: Moderate to severe Context: Patient has a history of trisomy 18, severe developmental delay, G- tube present accompanied by caregiver and father with 2-3 day history of fevers with T-max 101 F accompanied by loose wet cough. Notes increased fatigue. Influenza vaccine received last year. Patient is noncommunicative and nonverbal at baseline. Making wet diapers. Modifying Factors: None Comment: ROS: A comprehensive 10 system review of systems is otherwise negative aside from elements mentioned in the history of present illness. MEDICAL/SURGICAL/SOCIAL HISTORY: PMHx: Trisomy 18, scoliosis, Gtube fed, GI bleed, pancreatitis, pneumonia, recurrent UTIs PSHx: intussusception repair, G tube place, appendectomy Social history: Disabled. Nonsmoker. No alcohol or drug use. Family history noncontributory. CONSTITUTIONAL: Ill appearing young adult female, father and caregiver at bedside, opens eyes and tracks, awake and alert, appears uncomfortable HEENT: Atraumatic and normocephalic, PERRL, EOMI. Nares patent; no rhinorrhea; no nasal mucosal edema. Tympanic membranes clear. Oropharynx clear, no exudate and dry oral mucosa. Airway patent. No lymphadenopathy. No meningismus. Cardiovascular: Normal S1/S2, regular rate, regular rhythm, without murmur rub or gallop. PULMONARY/CHEST: Symmetrical and nontender. Rhonchi bilaterally with shallow breathing pattern. Poor air movement. + accessory muscle usage. Tachypnea. BACK: Severe scoliosis noted ABDOMEN: Soft, nondistended, nontender, no rebound, no guarding, no peritoneal signs, no masses or organomegaly. EXTREMITIES: 2/2 pulses, strength 5/5, no deformities, no clubbing, no cyanosis or edema. NEUROLOGICAL: Moving arms and legs passively. Nonverbal. SKIN: Warm and dry, no erythema. no rash. Good capillary refill. Source: Family, Old records Exam Limitations: Physical impairment - Personal History Current Tetanus/Diphtheria Vaccine: Yes Current Tetanus Diphtheria and Acellular Pertussis (TDAP): Yes Tetanus Vaccine Date: < 10 years - Medical/Surgical History Hx Asthma: No Hx Chronic Respiratory Disease: No Hx Diabetes: No Hx Cardiac Disease: No Hx Renal Disease: No Hx Cirrhosis: No Hx Alcoholism: No Hx HIV/AIDS: No Hx Splenectomy or Spleen Trauma: No Other PMH: PMHx: Trisomy 18, scoliosis, Gtube fed, GI bleed, pancreatitis, pneumonia, recurrent UTIs. PSHx: intussuception repair, G tube place, appendectomy - Social History Smoking Status: Never smoked Constitutional: Initial Vital Signs Temperature (C) 36 C 05/28/18 09:09 Heart Rate 95 05/28/18 09:09 Respiratory Rate 24 H 05/28/18 09:09 Blood Pressure 101/66 05/28/18 09:09 O2 Sat (%) 82 L 05/28/18 09:09 O2 Delivery Mode Oxymask O2 (L/minute) 4 Allergies/Adverse Reactions: No Known Allergies Allergy (Verified 05/28/18 09:08) Home Medications: Medication Instructions Recorded Herbals/Supplements -Info Only 1 ea PO DAILY 11/21/16 Medical Decision Making - Diagnostics Imaging Results: Imaging Impressions Chest X-Ray 05/28/18 09:13 Impression: Left basilar atelectasis versus pneumonia. Favor atelectasis given severe distortion and hypoventilation of the left hemithorax. ED Course/Re-evaluation: Vital signs reviewed and show tachypnea and O2 sats 82% on room air. Placed on nuclear monitoring technician. Placed on 5 L oxygen simple mask. Sepsis workup initiated for pneumonia consideration for an aspiration pneumonia given restrictive scoliosis IV access, laboratory studies, chest x-ray, blood cultures, lactic acid ordered Given 1 L normal saline, DuoNeb, IV Rocephin, IV azithromycin 1008: X-ray radiology read shows: Left basilar atelectasis versus pneumonia. 1020: Laboratory studies reviewed. Lactic acid 1.2, no leukocytosis, no anemia , no platelet dysfunction, DORY/elevated LFTs/electrolyte imbalance/ pancreatitis. 1050: Repeat vitals are 97/43, O2 sats 94% on 5 L, heart rate 102, afebrile 1050: ED decision to consult hospitalist for community-acquired pneumonia and hypoxia. No signs of sepsis. Spoke with Dr. Collins who kindly agrees to admit patient under the care of Dr. Peacock. 1320: Respiratory pathogen panel positive for parainfluenza virus type 2 This patient was seen under the supervision of my primary supervising physician. I evaluated care for this patient with attending. Differential Diagnosis: Adult fever including but not limited to viral syndromes including influenza, urinary tract infection, pneumonia and sepsis. - Data Points Laboratory Results: Laboratory Results 05/28/18 10:02 05/28/18 10:02 05/28/18 05/28/18 05/28/18 10:02 10:02 10:02 WBC 7.68 10^3/uL 10^3/uL (3.80-9.50) RBC 4.37 10^6/uL 10^6/uL (4.18-5.33) Hgb 13.4 g/dL g/dL (12.6-16.3) Hct 40.7 % % (38.0-47.0) MCV 93.1 fL fL (81.5-99.8) MCH 30.7 pg pg (27.9-34.1) MCHC 32.9 g/dL g/dL (32.4-36.7) RDW 12.3 % % (11.5-15.2) Plt Count 187 10^3/uL 10^3/uL (150-400) MPV 10.5 fL fL (8.7-11.7) Neut % (Auto) 63.4 % % (39.3-74.2) Lymph % (Auto) 28.5 % % (15.0-45.0) [place] % (Auto) 7.9 % % (4.5-13.0) Eos % (Auto) 0.0 % L % (0.6-7.6) Baso % (Auto) 0.1 % L % (0.3-1.7) Nucleat RBC Rel Count 0.0 % % (0.0-0.2) Absolute Neuts (auto) 4.86 10^3/uL 10^3/uL (1.70-6.50) Absolute Lymphs (auto) 2.19 10^3/uL 10^3/uL (1.00-3.00) Absolute Monos (auto) 0.61 10^3/uL 10^3/uL (0.30-0.80) Absolute Eos (auto) 0.00 10^3/uL L 10^3/uL (0.03-0.40) Absolute Basos (auto) 0.01 10^3/uL L 10^3/uL (0.02-0.10) Absolute Nucleated RBC 0.00 10^3/uL 10^3/uL (0-0.01) Immature Gran % 0.1 % % (0.0-1.1) Immature Gran # 0.01 10^3/uL 10^3/uL (0.00-0.10) VBG Lactic Acid 1.2 mmol/L mmol/L (0.7-2.1) Sodium Potassium Chloride Carbon Dioxide Anion Gap BUN Creatinine Estimated GFR Glucose Calcium Total Bilirubin Conjugated Bilirubin Unconjugated Bilirubin AST ALT Alkaline Phosphatase Total Protein Albumin Lipase 89 IU/L IU/L (23-300) Procalcitonin 05/28/18 10:02 WBC RBC Hgb Hct MCV MCH MCHC RDW Plt Count MPV Neut % (Auto) Lymph % (Auto) [place] % (Auto) Eos % (Auto) Baso % (Auto) Nucleat RBC Rel Count Absolute Neuts (auto) Absolute Lymphs (auto) Absolute Monos (auto) Absolute Eos (auto) Absolute Basos (auto) Absolute Nucleated RBC Immature Gran % Immature Gran # VBG Lactic Acid Sodium 140 mEq/L mEq/L (135-145) Potassium 4.2 mEq/L mEq/L (3.5-5.2) Chloride 101 mEq/L mEq/L (97-110) Carbon Dioxide 29 mEq/l mEq/l (22-31) Anion Gap 10 mEq/L mEq/L (6-14) BUN 8 mg/dL mg/dL (7-23) Creatinine 0.4 mg/dL L mg/dL (0.6-1.0) Estimated GFR > 60 Glucose 86 mg/dL mg/dL (70-100) Calcium 9.1 mg/dL mg/dL (8.5-10.4) Total Bilirubin 0.2 mg/dL mg/dL (0.1-1.4) Conjugated Bilirubin 0.1 mg/dL mg/dL (0.0-0.5) Unconjugated Bilirubin 0.1 mg/dL mg/dL (0.0-1.1) AST 35 IU/L IU/L (14-46) ALT 25 IU/L IU/L (9-52) Alkaline Phosphatase 97 IU/L IU/L (38-126) Total Protein 6.9 g/dL g/dL (6.3-8.2) Albumin 4.2 g/dL g/dL (3.5-5.0) Lipase Procalcitonin 0.03 ng/mL ng/mL (0.02-0.10) Microbiology Results: MICROBIOLOGY 05/28/18 10:16 Nasal, Sinus - Swab Respiratory Panel (PCR) - Final Parainfluenza Virus Type 2 Medications Given: Sodium Chloride (Ns) 1,000 mls @ 75 mls/hr IV CONT LI Stop: 11/24/18 11:14 Last Admin: 05/28/18 13:02 Dose: 1,000 mls Discontinued Medications Albuterol/Ipratropium (Duoneb) 3 ml IH EDNOW ONE Stop: 05/28/18 09:19 Last Admin: 05/28/18 10:19 Dose: 3 ml Ceftriaxone Sodium/Dextrose (Rocephin 1 Gm (Premix)) 50 mls @ 100 mls/hr IV EDNOW ONE PRN Reason: Protocol Stop: 05/28/18 09:42 Last Admin: 05/28/18 10:25 Dose: 50 mls Sodium Chloride (Ns) 1,000 mls @ 0 mls/hr IV ONCE ONE; Wide Open PRN Reason: Protocol Stop: 05/28/18 09:14 Last Admin: 05/28/18 10:19 Dose: 1,000 mls Azithromycin 500 mg/ Sodium (Chloride) 255 mls @ 255 mls/hr IV EDNOW ONE Stop: 05/28/18 10:44 Last Admin: 05/28/18 10:54 Dose: 255 mls Departure - Departure Disposition: [facility] Inpatient Acute Clinical Impression: Hypoxia, Trisomy 18 syndrome, Infection due to parainfluenza virus 2 Community acquired pneumonia Qualifiers: Laterality: left Lung location: lower lobe of lung Qualified Code(s): J18.1 - Lobar pneumonia, unspecified organism Condition: Fair
[2018-05-28] MEDS ORDERED: IPRATROPIUM/ALBUTEROL 3 ML DEYVIAL IH ONE (09:18)
[2018-05-28] MEDS ORDERED: AZITHROMYCIN IV 500 MG in NS 250 ML IV ONE (09:45)
[2018-05-28 10:13] LABS: PLATELET COUNT 187 10^3/uL (150-400)
[2018-05-28] MEDS ORDERED: ACETAMINOPHEN 650 MG SUPP PR PRN (11:04)
[2018-05-28] MEDS ORDERED: ONDANSETRON 4 MG/2 ML VIAL IVP PRN (11:04)
[2018-05-28] MEDS ORDERED: NS 1,000 ML IV SCH (11:15)
[2018-05-28] MEDS ORDERED: ACETAMINOPHEN 160 MG/5 ML UDCUP TUBE PRN (15:32)
[2018-05-28] MEDS ORDERED: GUAIFENESIN/DM 10 ML UDCUP TUBE PRN (15:33)
--- NOTE | 2018-05-28 15:59 | PDGENHP ---
History and Physical - Chief Complaint cough, fever - History of Present Illness 22 yo female with h/o trisomy 21 with peg tube on tube feeds and prior h/o aspiration presents to ED with cough and fever. Pt is non-verbal and hx is obtained from mother and caregiver at bedside. She developed nasal congestion 4 -5 days ago, then fevers to 101 with cough. She has a weak cough, which is wet , somewhat productive. No sick contacts. She uses blow-by O2 at night. On arrival to the ED, she was hypoxemic and CXR showed possible LLL infiltrate. Blood cultures were drawn. She received IV Ceftriaxone and Azithromycin and is admitted to the hospital for further management. History Information - Allergies/Home Medication List Allergies/Adverse Reactions: No Known Allergies Allergy (Verified 05/28/18 09:08) Home Medications: Herbals/Supplements -Info Only 1 ea PO DAILY 11/21/16 [Last Taken Unknown] I have personally reviewed and updated: family history, medical history, social history, surgical history - Past Medical History Additional medical history: Trisomy 18. Pancreatitis x2. Intussusception - Surgical History Reports: no pertinent surgical hx - Family History Positive for: cancer - Social History Smoking Status: Never smoked Alcohol Use: None Drug Use: None Additional social history: Lives at home with caregiver Review of Systems Review of Systems: ROS: 10pt was reviewed & negative except for what was stated in HPI & below Physical Exam Physical Exam: Temp Pulse Resp BP Pulse Ox 36.6 C 105 H 20 95/62 L 98 05/28/18 12:53 05/28/18 12:53 05/28/18 12:53 05/28/18 12:53 05/28/18 12:53 O2 (L/minute) 5 Constitutional: no apparent distress Eyes: PERRL Ears, Nose, Mouth, Throat: moist mucous membranes Cardiovascular: regular rate and rhythym Respiratory: reduced air movement, inspiratory crackles, bronchial breath sounds Gastrointestinal: normoactive bowel sounds, soft, non-tender abdomen, other ( peg tube site clean, dry, no drainage) Skin: warm Musculoskeletal: full muscle strength Neurologic: AAOx3 Psychiatric: interacting appropriately Lab Data & Imaging Review 05/28/18 10:02 05/28/18 10:02 WBC 7.68 10^3/uL (3.80-9.50) 05/28/18 10:02 RBC 4.37 10^6/uL (4.18-5.33) 05/28/18 10:02 Hgb 13.4 g/dL (12.6-16.3) 05/28/18 10:02 Hct 40.7 % (38.0-47.0) 05/28/18 10:02 MCV 93.1 fL (81.5-99.8) 05/28/18 10:02 MCH 30.7 pg (27.9-34.1) 05/28/18 10:02 MCHC 32.9 g/dL (32.4-36.7) 05/28/18 10:02 RDW 12.3 % (11.5-15.2) 05/28/18 10:02 Plt Count 187 10^3/uL (150-400) 05/28/18 10:02 MPV 10.5 fL (8.7-11.7) 05/28/18 10:02 Neut % (Auto) 63.4 % (39.3-74.2) 05/28/18 10:02 Lymph % (Auto) 28.5 % (15.0-45.0) 05/28/18 10:02 [place] % (Auto) 7.9 % (4.5-13.0) 05/28/18 10:02 Eos % (Auto) 0.0 % (0.6-7.6) L 05/28/18 10:02 Baso % (Auto) 0.1 % (0.3-1.7) L 05/28/18 10:02 Nucleat RBC Rel Count 0.0 % (0.0-0.2) 05/28/18 10:02 Absolute Neuts (auto) 4.86 10^3/uL (1.70-6.50) 05/28/18 10:02 Absolute Lymphs (auto) 2.19 10^3/uL (1.00-3.00) 05/28/18 10:02 Absolute Monos (auto) 0.61 10^3/uL (0.30-0.80) 05/28/18 10:02 Absolute Eos (auto) 0.00 10^3/uL (0.03-0.40) L 05/28/18 10:02 Absolute Basos (auto) 0.01 10^3/uL (0.02-0.10) L 05/28/18 10:02 Absolute Nucleated RBC 0.00 10^3/uL (0-0.01) 05/28/18 10:02 Immature Gran % 0.1 % (0.0-1.1) 05/28/18 10:02 Immature Gran # 0.01 10^3/uL (0.00-0.10) 05/28/18 10:02 VBG Lactic Acid 1.2 mmol/L (0.7-2.1) 05/28/18 10:02 Sodium 140 mEq/L (135-145) 05/28/18 10:02 Potassium 4.2 mEq/L (3.5-5.2) 05/28/18 10:02 Chloride 101 mEq/L (97-110) 05/28/18 10:02 Carbon Dioxide 29 mEq/l (22-31) 05/28/18 10:02 Anion Gap 10 mEq/L (6-14) 05/28/18 10:02 BUN 8 mg/dL (7-23) 05/28/18 10:02 Creatinine 0.4 mg/dL (0.6-1.0) L 05/28/18 10:02 Estimated GFR > 60 05/28/18 10:02 Glucose 86 mg/dL (70-100) 05/28/18 10:02 Calcium 9.1 mg/dL (8.5-10.4) 05/28/18 10:02 Total Bilirubin 0.2 mg/dL (0.1-1.4) 05/28/18 10:02 Conjugated Bilirubin 0.1 mg/dL (0.0-0.5) 05/28/18 10:02 Unconjugated Bilirubin 0.1 mg/dL (0.0-1.1) 05/28/18 10:02 AST 35 IU/L (14-46) 05/28/18 10:02 ALT 25 IU/L (9-52) 05/28/18 10:02 Alkaline Phosphatase 97 IU/L (38-126) 05/28/18 10:02 Total Protein 6.9 g/dL (6.3-8.2) 05/28/18 10:02 Albumin 4.2 g/dL (3.5-5.0) 05/28/18 10:02 Lipase 89 IU/L (23-300) 05/28/18 10:02 Procalcitonin 0.03 ng/mL (0.02-0.10) 05/28/18 10:02 Visualized and Interpreted Chest x-ray results: Yes Chest X-Ray results: other (possible LLL infiltrate vs atelectasis) Assessment & Plan Assessment: AHRF 2/2 viral URI +/- secondary bacterial PNA. Presents with increased WOB. Currently on 3 LPM. RVP +parainfluenza. CXR with possible LLL infiltrate. -Ceftriaxone/Flagyl -nebs, supportive care -speech/swallow eval H/O aspiration - aspiration precautions, hold tube feeds today FEN - Pt NPO with PEG -will resume tube feeds tomorrow, family to bring Trisomy 18 H/O pancreatitis DNR/DNI - per MOST an discussion with family, bipap okay Dispo - admit to inpt, anticipate >48 hrs hospitalization for ongoing management of hypoxemia / viral URI / possible PNA
[2018-05-28] MEDS: D5W NS 1,000 ML IV SCH (17:29)
[2018-05-28] MEDS ORDERED: guaiFENesin 200 MG/10 ML UDL PO PRN (19:56)
[2018-05-29] MEDS: D5W NS 1,000 ML IV SCH (06:28)
--- NOTE | 2018-05-29 08:40 | HOSPPROG ---
Hospitalist Progress Note Assessment/Plan: #Acute hypoxic resp failure -due to Parainfluenza. -supportive measures #Possible Aspiration PNA: normal WBC, negative procalcitonin. Will monitor off abx #Trisomy 18: nonverbal at baseline. Parents are caregivers #h/o dysphagia: PEG tube, restart TFs today #h/o recurrent pancreatitis: no grimace with exam #DVT ppx: Lovenox #Disp: cont inpatient admission for IVFs. If clinically improved, can DC tomorrow Subjective: was more smiley, energetic this morning per parents Objective: Vital Signs Temp Pulse Resp BP Pulse Ox 36.5 C 87 20 87/53 L 93 05/29/18 08:00 05/29/18 08:00 05/29/18 08:00 05/29/18 04:00 05/29/18 08:00 05/28/18 05/29/18 05/30/18 05:59 05:59 05:59 Intake Total 1718 Output Total 300 Balance 1418 - Time Spent With Patient Time Spent with Patient: greater than 35 minutes Time Spent with Patient: Greater than 35 minutes spent on this patients care, greater than 50% of time spent counseling, educating, and coordinating care regarding the above mentioned plan. - Physical Exam Constitutional: other (fatigue) Eyes: PERRL Ears, Nose, Mouth, Throat: moist mucous membranes Cardiovascular: regular rate and rhythym Respiratory: no respiratory distress Gastrointestinal: normoactive bowel sounds, other (PEG in place) Musculoskeletal: other (legs contractures) Neurologic: other (non-verbal) ICD10 Worksheet Patient Problems: Problems Problem Status Onset Community acquired pneumonia Acute Hypoxia Acute Infection due to parainfluenza virus 2 Acute Trisomy 18 syndrome Acute Aspiration pneumonia Acute
[2018-05-29] MEDS ORDERED: AZITHROMYCIN IV 500 MG in NS 250 ML IV SCH (09:00)
--- NOTE | 2018-05-29 09:56 | PDMN ---
Medical Necessity Medical necessity: Pt meets IP criteria per MD & MCG MG-SIC Systemic or Infectious Condition; est los >2 mn for eval/tx of acute hypoxic respiratory failure w/tachycardia & hypotension r/t parainfluenza & possible aspiration pneumonia; admit for further monitoring, IV abx, IVFs, respiratory supportive care & RN PROCEDURES eval; hx trisomy 18, non-verbal, peg tub, dysphagia, pancreatitis; per H&P & order 05/28/18
--- NOTE | 2018-05-29 12:01 | ASMTCMCOM ---
CM Note CM Note Notes: Pt is a 22 y/o female admitted for CAP and hypoxia. Pt has a peg tube on tube feeds. Pt is non verbal. Pt has a supportive parents and caregivers. CM met w/ parents for dispo planning. Pt currently has HCBS services through [facility]. Pts [facility] director case is Amanda Marvin (P#: [phone]). CM called her and left a msg. Pt has CDASS and a EBD wavier. Pt is in the process of getting a DD comp wavier. Pt is well supported in the community and don't anticipate having any d/c needs. SPL and PT has been ordered. CM available for changes. Plan: Independent w/ supportive caregivers/parents Date Signed: 05/29/2018 12:00 PM Electronically Signed By:SALIMA Schulz
[2018-05-29] MEDS: ENOXAPARIN 40 MG/0.4 ML SYR SC SCH (15:29)
[2018-05-29] MEDS: BISACODYL 10 MG SUPP PR SCH (15:29)
[2018-05-29] MEDS: guaiFENesin 200 MG/10 ML UDL TUBE PRN (17:07)
[2018-05-30] MEDS: guaiFENesin 200 MG/10 ML UDL TUBE PRN ×2 (01:41→09:22)
[2018-05-30] MEDS: ALBUTEROL 3 ML DEYVIAL IH PRN ×3 (01:53→16:33)
[2018-05-30] MEDS: ENOXAPARIN 40 MG/0.4 ML SYR SC SCH (09:23)
[2018-05-30] MEDS: D5W NS 1,000 ML IV SCH (13:10)
[2018-05-30] MEDS: ACETYLCYSTEINE 20% IH/PO 4 ML VIAL IH SCH (16:32)
--- NOTE | 2018-05-30 18:07 | HOSPPROG ---
Hospitalist Progress Note Assessment/Plan: #Acute hypoxic resp failure -due to Parainfluenza. Repeat CXR to eval for PNA. Remains afebrile, no leukocytosis, NL procalcitonin -hesitant to start abx with h/o C diff. D/w mother; will start if febrile or repeat WBC -spoke with Dr. Hernandez who will eval tomorrow -add CP vest, Mucomyst #Possible Aspiration PNA: normal WBC, negative procalcitonin. Will monitor off abx #Trisomy 18: nonverbal at baseline. Parents are caregivers #h/o dysphagia: PEG tube, restart TFs today #h/o recurrent pancreatitis: no grimace with exam #DVT ppx: Lovenox #Disp: cont inpatient admission for IVFs, pulmonary therapies Subjective: O2 sat dropped to 70s while RT suctioned today Objective: Vital Signs Temp Pulse Resp BP Pulse Ox 36.7 C 78 20 103/65 92 05/30/18 15:17 05/30/18 17:09 05/30/18 17:09 05/30/18 15:17 05/30/18 17:09 05/29/18 05/30/18 05/31/18 05:59 05:59 05:59 Intake Total 1718 Output Total 300 Balance 1418 - Time Spent With Patient Time Spent with Patient: greater than 35 minutes Time Spent with Patient: Greater than 35 minutes spent on this patients care, greater than 50% of time spent counseling, educating, and coordinating care regarding the above mentioned plan. - Physical Exam Constitutional: no apparent distress Eyes: PERRL Ears, Nose, Mouth, Throat: moist mucous membranes Cardiovascular: regular rate and rhythym Respiratory: rhonchi Gastrointestinal: normoactive bowel sounds, other (PEG in place) Genitourinary: no bladder fullness Skin: warm Musculoskeletal: other (scoliosis) Neurologic: other (nonverbal) ICD10 Worksheet Patient Problems: Problems Problem Status Onset Community acquired pneumonia Acute Hypoxia Acute Infection due to parainfluenza virus 2 Acute Trisomy 18 syndrome Acute Aspiration pneumonia Acute
[2018-05-31] MEDS: ALBUTEROL 3 ML DEYVIAL IH PRN (00:05)
[2018-05-31] MEDS: ACETYLCYSTEINE 20% IH/PO 4 ML VIAL IH SCH ×5 (00:05→21:51)
[2018-05-31] MEDS: D5W NS 1,000 ML IV SCH ×2 (05:08→18:29)
[2018-05-31] MEDS: LEVALBUTEROL 0.63 MG/3 ML DEYVIAL IH PRN ×3 (09:24→21:51)
[2018-05-31] MEDS: ENOXAPARIN 40 MG/0.4 ML SYR SC SCH (09:47)
[2018-05-31] MEDS: BISACODYL 10 MG SUPP PR SCH (09:47)
--- NOTE | 2018-05-31 14:57 | HOSPPROG ---
Hospitalist Progress Note Assessment/Plan: #Acute hypoxic resp failure: decreased oxygen needs with CPvest, Mucomyst -due to Parainfluenza. Remains afebrile, no leukocytosis, NL procalcitonin -hesitant to start abx with h/o C diff. D/w mother; will start if febrile or repeat WBC t #Possible Aspiration PNA: normal WBC, negative procalcitonin. Will monitor off abx #Trisomy 18: nonverbal at baseline. Parents are caregivers #h/o dysphagia: PEG tube, restart TFs #h/o recurrent pancreatitis: no grimace with exam #DVT ppx: Lovenox #Disp: cont inpatient admission for IVFs, pulmonary therapies Subjective: getting Objective: Vital Signs Temp Pulse Resp BP Pulse Ox 37.0 C 82 16 114/81 H 97 05/31/18 11:26 05/31/18 11:26 05/31/18 11:26 05/31/18 11:26 05/31/18 14:52 Laboratory Results 05/31/18 04:32 05/30/18 05/31/18 06/01/18 05:59 05:59 05:59 Output Total 1 Balance -1 - Time Spent With Patient Time Spent with Patient: greater than 35 minutes Time Spent with Patient: Greater than 35 minutes spent on this patients care, greater than 50% of time spent counseling, educating, and coordinating care regarding the above mentioned plan. - Physical Exam Constitutional: no apparent distress, other Ears, Nose, Mouth, Throat: moist mucous membranes Cardiovascular: regular rate and rhythym Respiratory: rhonchi (improved from yesterday) Gastrointestinal: normoactive bowel sounds, other (PEG tube) Skin: warm Musculoskeletal: other (kyphotic) Neurologic: other (nonverbal) ICD10 Worksheet Patient Problems: Problems Problem Status Onset Community acquired pneumonia Acute Hypoxia Acute Infection due to parainfluenza virus 2 Acute Trisomy 18 syndrome Acute Aspiration pneumonia Acute
[2018-06-01] MEDS: ACETYLCYSTEINE 20% IH/PO 4 ML VIAL IH SCH ×2 (06:12→10:50)
[2018-06-01] MEDS: LEVALBUTEROL 0.63 MG/3 ML DEYVIAL IH PRN ×2 (06:13→10:50)
[2018-06-01] MEDS: D5W NS 1,000 ML IV SCH (07:57)
[2018-06-01] MEDS: ENOXAPARIN 40 MG/0.4 ML SYR SC SCH (09:19)
[2018-06-01 12:00] VITALS: BP 87/66
--- NOTE | 2018-06-01 13:06 | PDHOMEO2F ---
Home Oxygen Face to Face Home Orders: I certify that a physician or a nurse practitioner or physician's assistant auditor has had a [id number] encounter with this patient on the date of this order due to the diagnosis listed, which relates to the primary reason the patient requires home oxygen. Alternative treatments have been tried, or considered, and deemed ineffective. It is anticipated that supplemental oxygen will result in improvement with treatment. Home oxygen qualifying diagnosis: Acute hypoxia Home oxygen secondary diagnosis: Parainflueunza viral infection SpO2 on room air (%): 82 Frequency of home oxygen needed: continuous Home oxygen liters per minute: 1 Home oxygen delivery device: other (mask) Concentrator: Yes E-tanks for mobility and back up: Yes If ordering portable O2, is the patient mobile in the home?: No I certify that, based on these findings, the home oxygen is medically necessary for this patient for the following length of time. Length of time home oxygen needed: 99 years
--- NOTE | 2018-06-01 13:59 | GDS ---
[f rep st] DISCHARGE SUMMARY DISCHARGE DIAGNOSES: 1. Acute hypoxic respiratory failure. 2. Parainfluenza viral infection. 3. History of aspiration pneumonia. 4. Trisomy 18. 5. History of dysphagia. 6. History of pancreatitis. 7. Clostridium difficile. HISTORY OF PRESENT ILLNESS: A 22-year-old female with trisomy 18, PEG tube, presents to the ER with cough and fever. She is nonverbal and history is obtained from mother. She developed nasal congestion for 4-5 days prior to admission. Fevers to 101 with cough. She uses blow-by oxygen at night. HOSPITAL COURSE BY PROBLEM: 1. Acute hypoxic respiratory failure: from Parainfluenza URI. Did not treat with abx with history of C diff. She remained afebrile, no leukocytosis, normal procalcitonin. Symptoms greatly improved with percussion vest, Mucomyst. Pulm toileting limited by kyphosis and inability to participate in therapies. Discharged on 1 L oxygen and vest. 2. Parainfluenza URI: Supportive care. 3. Trisomy 18. parents are very involved in her care and they also have a caregiver. 4. History of C difficile. Again, held off on antibiotics and patient has done well. 5. Pancreatitis. No evidence currently. DISPOSITION: Patient is stable for discharge home with family and caregiver. NEW MEDICATIONS: 1. Xopenex nebulizers. 2. Guaifenesin. 3. percussion vest FOLLOWUP: primary care physician. PHYSICAL EXAMINATION: VITAL SIGNS: Today, temperature 36.0, blood pressure 100 /78, heart rate 60 to 100, 100% on 1 L. GENERAL: She is sleeping, resting comfortably, in no acute distress. HEENT: PERRLA. CV: Regular. PEG tube in place. NEURO: She is nonverbal. PSYCH: Nonverbal. TIME SPENT ON DISCHARGE: Greater than 60 minutes at bedside with mother discussing DC and coordinating with RT. medications at discharge. /[id number]/MODL MTDD
--- NOTE | 2018-06-01 15:24 | ASMTDCNOTE ---
Case Management Discharge Discharge Order Complete? Answers: Yes Patient to Obtain Answers: via Family Medications Transportation Arranged Answers: Family/Friends Family Notified Answers: Yes Notes: mother, trevor Orta Discharge Comments Notes: Patient is discharging home to her caregivers. She is developmentally delayed but has a good support system in place. Patient has HCBS with [employer]. No further needs. Date Signed: 06/01/2018 03:23 PM Electronically Signed By:Tena Lan LCSW
--- NOTE | 2018-06-01 15:27 | ASDISCHSUM ---
Discharge Information Plan Status:Home with No Needs Medically Cleared to Leave:06/01/2018 Discharge Date:06/01/2018 CM D/C Disposition:Home, Routine, Self-Care ADT D/C Disposition:Home, Routine, Self-Care Projected Discharge Date:06/01/2018 12:00 AM Transportation at D/C:Family Discharge Delay Reason: Follow-Up Date:06/01/2018 12:00 AM Discharge Slot:2 - 12:01 pm - 18:00 pm Final Diagnosis:Aspiration pneumonia, hypoxia, parainfluenza virus2 Placement Information Patient Contact Information Contact Name:AJITH Relationship:Father Address:[address] City:[place] Alternate Phone: State/Zip Code:[place] [address] Email: Financial Information Financial Class:Medicaid Primary Plan Desc:[employer] [place] Primary Plan Number:[id number] Secondary Plan Desc: Secondary Plan Number: Assessment Information LACE LACE Length of stay for Answers: 4-6 days current admission Acuity / Level of Answers: Yes Care: Did the patient have an inpatient admission? Comorbidities - select Answers: Other Notes: Trisomy 18; Recurrent all that apply UTIs # of Emergency department Answers: 1-2 visits in the last 6 months Score: 9 Date Signed: 06/01/2018 03:25 PM Electronically Signed By:Tena Lan LCSW [facility] Progress Note CM Note CM Note Notes: Pt is a 22 y/o female admitted for CAP and hypoxia. Pt has a peg tube on tube feeds. Pt is non verbal. Pt has a supportive parents and caregivers. CM met w/ parents for dispo planning. Pt currently has HCBS services through [facility]. Pts [facility] bottle caser is Amanda Marvin (P#: [phone]). CM called her and left a msg. Pt has CDASS and a EBD wavier. Pt is in the process of getting a DD comp wavier. Pt is well supported in the community and don't anticipate having any d/c needs. SPL and PT has been ordered. CM available for changes. Plan: Independent w/ supportive caregivers/parents Date Signed: 05/29/2018 12:00 PM Electronically Signed By:SALIMA Schulz Case Management Discharge Plan Note Case Management Discharge Discharge Order Complete? Answers: Yes Patient to Obtain Answers: via Family Medications Transportation Arranged Answers: Family/Friends Family Notified Answers: Yes Notes: mother, trevor Orta Discharge Comments Notes: Patient is discharging home to her caregivers. She is developmentally delayed but has a good support system in place. Patient has HCBS with [facility]. No further needs. Date Signed: 06/01/2018 03:23 PM Electronically Signed By:Tena Lan LCSW Intervention Information
== END 2018-06-01 17:02 | disposition home or self-care (01) | DRG 113 ==
LOC: F3E 12:41
PROVIDERS: ADMIT Hospitalist; ATTEND Hospitalist
DX: J06.9 Acute upper respiratory infection, unspecified (principal); J96.01 Acute respiratory failure with hypoxia; B34.8 Other viral infections of unspecified site; Q91.3 Trisomy 18, unspecified; Z66 Do not resuscitate
CPT/HCPCS: 96365; J0456; J0696; J1650; J7608; J7613